=== PATIENT | female | born 1975 | race Caucasian/White ===

== ENCOUNTER 2018-02-27 14:04 | Inpatient (IN) | payer BC ==
[2018-02-27 14:11] VITALS: BMI 29.2
[2018-02-27] MEDS ORDERED: Sodium Chloride 0.9% 1,000 ML IV STA ×2 (14:50→16:28)
[2018-02-27 15:29] LABS: BASO # 0.1 K/uL (0.0-0.2); BASO % 0.6 % (0.0-2.0); HEMOGLOBIN 11.9 g/dL (12.0-16.0); LYMPH # 1.1 K/uL (1.0-4.3); LYMPH % 7.4 % (20.0-40.0); MEAN CELL VOLUME 90.3 fl (81.0-99.0); MEAN CORPUSCULAR HEMOGLOBIN 30.1 pg (27.0-31.0); MEAN CORPUSCULAR HGB CONC 33.4 g/dL (33.0-37.0); MEAN PLATELET VOLUME 7.7 fl (7.2-11.7); MONO # 1.2 K/uL (0.0-0.8); MONO % 8.4 % (0.0-10.0); NEUT # 12.2 K/uL (1.8-7.0); NEUT % 83.6 % (50.0-75.0); PLATELET COUNT 280 K/uL (130-400); RBC 3.97 Mil/uL (3.80-5.20); RED CELL DISTRIBUTION WIDTH 12.3 % (11.5-14.5); WHITE BLOOD COUNT 14.6 K/uL (4.8-10.8)
--- NOTE | 2018-02-27 15:33 | ED PDOC ---
HPI: General Adult Time Seen by Provider: 02/27/18 14:23 Chief Complaint (Nursing): Fever Chief Complaint (Provider): abdominal pain and fever History Per: Patient History/Exam Limitations: no limitations Onset/Duration Of Symptoms: Days (2x) Current Symptoms Are (Timing): Still Present Additional Complaint(s): 42 year old female presents to the ED for an evaluation of abdominal pain and fever onset for 2 days. Also report of body ache and right lower quadrant pain, burning urination and right lower back pain. She went to [facility] yesterday where she was diagnosed with UTI and provided antibiotics. Denies diarrhea or vomiting. PMD: Dr. Avila Past Medical History Reviewed: Historical Data, Nursing Documentation, Vital Signs Vital Signs: Last Vital Signs Temp 98.2 F 03/01/18 12:30 Pulse 70 03/01/18 12:30 Resp 18 03/01/18 12:30 BP 127/78 03/01/18 12:30 Pulse Ox 95 03/01/18 12:30 - Medical History PMH: No Chronic Diseases - Family History Family History: States: Unknown Family Hx - Social History Current smoker - smoking cessation education provided: No Alcohol: None Drugs: Denies - Immunization History Hx Tetanus Toxoid Vaccination: No Hx Influenza Vaccination: No Hx Pneumococcal Vaccination: No - Home Medications Home Medications: Ambulatory Orders Medication Instructions Recorded Phenazopyridine [Pyridium] 200 mg PO TID PRN 02/27/18 Sulfamethoxazole/Trimethoprim 1 tab PO BID 02/27/18 [Bactrim DS Tab] - Allergies Allergies/Adverse Reactions: Allergies Allergy/AdvReac Type Severity Reaction Status Date / Time shrimp Allergy ITCHING Verified 02/27/18 17:34 Review of Systems ROS Statement: Except As Marked, All Systems Reviewed And Found Negative Constitutional: Positive for: Fever, Other (body ache) Gastrointestinal: Positive for: Abdominal Pain (RLQ). Negative for: Vomiting, Diarrhea Genitourinary Female: Positive for: Dysuria Musculoskeletal: Positive for: Back Pain (right lower side) Psych: Negative for: Suicidal ideation (homicidal ideation) Physical Exam - Reviewed Nursing Documentation Reviewed: Yes Vital Signs Reviewed: Yes - Physical Exam Appears: Positive for: Non-toxic, Uncomfortable Head Exam: Positive for: ATRAUMATIC, NORMAL INSPECTION, NORMOCEPHALIC Skin: Positive for: Normal Color, Warm, Dry Eye Exam: Positive for: Normal appearance, EOMI, PERRL ENT: Positive for: Normal ENT Inspection Neck: Positive for: Normal, Painless ROM, Supple. Negative for: Decreased ROM Cardiovascular/Chest: Positive for: Regular Rate, Rhythm, Tachycardia Respiratory: Positive for: Normal Breath Sounds. Negative for: Decreased Breath Sounds, Wheezing, Respiratory Distress Gastrointestinal/Abdominal: Positive for: Tenderness (right lower quadrant) Back: Positive for: R CVA Tenderness Extremity: Positive for: Normal ROM. Negative for: Tenderness, Pedal Edema, Deformity Neurologic/Psych: Positive for: Alert, Oriented (x3). Negative for: Motor/ Sensory Deficits - Laboratory Results Result Diagrams: 03/01/18 05:30 03/01/18 05:30 - ECG O2 Sat by Pulse Oximetry: 98 (RA) Pulse Ox Interpretation: Normal Medical Decision Making Medical Decision Making: Time: 1449 Initial Impression: abdominal pain and fever Differential Diagnosis includes but is not limited to: acute pyelonephritis, kidney stone r/o appendicitis, sepsis Initial Plan: --Venous Blood Gas Shock --EKG --CMP --CBC w/ Differential --Sodium Chloride 0.9% 1000ml IV 1000mls/hr --Toradol 15mg --Tylenol 650mg --Blood culture --Reevaluation Time: 1626 Patient has severe sepsis and sources of UTI. Discussed the case with Dr. David who will admit the patient. Scribe Attestation: Documented by Bettie Castillo, acting as a scribe for Perla Marvin MD Provider Scribe Attestation: All medical record entries made by the Scribe were at my direction and personally dictated by me. I have reviewed the chart and agree that the record accurately reflects my personal performance of the history, physical exam, medical decision making, and the department course for this patient. I have also personally directed, reviewed, and agree with the discharge instructions and disposition. Disposition - Clinical Impression Clinical Impression: Fever, UTI (urinary tract infection), Pyelonephritis, Sepsis - Patient ED Disposition Is Patient to be Admitted: Yes Discussed With : Orlin David Counseled Patient/Family Regarding: Studies Performed, Diagnosis - Disposition Disposition Time: 16:00 Condition: FAIR - Pt Status Changed To: Hospital Disposition Of: Inpatient - Admit Certification Admit to Inpatient:: After my assessment, the patient will require hospitalization for at least two midnights. This is because of the severity of symptoms shown, intensity of services needed, and/or the medical risk in this patient being treated as an outpatient. - POA Present On Arrival: None
[2018-02-27 15:35] LABS: VENOUS BLOOD GAS BASE EXCESS 2.3 mmol/L (0.0-2.0); VENOUS BLOOD GAS PCO2 31 mmHg (40-60); VENOUS BLOOD GAS PO2 33 mm/Hg (30-55); VENOUS BLOOD PH 7.51 (7.32-7.43)
[2018-02-27 15:37] LABS: SQUAMOUS EPITHIAL 1 /hpf (0-5); URINE BACTERIA MOD (<OCC); URINE BILIRUBIN NEGATIVE (NEGATIVE); URINE BLOOD MODERATE (NEGATIVE); URINE CLARITY SLIGHTY-CLOUDY (Clear); URINE COLOR AMBER (YELLOW); URINE GLUCOSE (UA) NEG (Normal); URINE LEUKOCYTE ESTERASE SMALL Leu/uL (Negative); URINE PROTEIN 100 mg/dL (NEGATIVE)
[2018-02-27 16:22] LABS: ALB/GLOB RATIO 1.1 (1.0-2.1); ALBUMIN 4.1 g/dL (3.5-5.0); ALT/SGPT 53 U/L (9-52); AST/SGOT 93 U/L (14-36); BLOOD UREA NITROGEN 12 mg/dl (7-17); CALCIUM 8.8 mg/dL (8.4-10.2); GFR AFRICAN-AMERICAN > 60; GFR NON-AFRICAN AMERICAN > 60
[2018-02-27] MEDS ORDERED: Morphine 4 MG/ML VIAL IVP ONE (16:24)
[2018-02-27] MEDS ORDERED: Morphine 4 MG/ML VIAL ONE (16:31)
[2018-02-27] MEDS ORDERED: cefTRIAXone (Rocephin) 1 gm Inj ONE (16:31)
[2018-02-27] MEDS ORDERED: Iohexol 300 100 ML IJ ONE (17:03)
[2018-02-27] MEDS ORDERED: Sodium Chloride 0.9% 50 ML IV ONE (17:03)
--- NOTE | 2018-02-27 17:38 | CP.PCM.HP ---
History of Present Illness - History of Present Illness History of Present Illness: 42 yo female with no significant PMH came in because of suprapubic pain and dysuria since yesterday accompanied with fever and chills. She was seen at [facility] last night and was diagnosed with UTI. She was sent home with PO antibiotics but pain and dysuria did not improve and was later on accompanied with fever and chills. Denied SOB or chest pain. Present on Admission - Present on Admission Any Indicators Present on Admission: No History of DVT/PE: No History of Uncontrolled Diabetes: No Urinary Catheter: No Decubitus Ulcer Present: No Review of Systems - Review of Systems All systems: reviewed and no additional remarkable complaints except (aside from those mentioned above, 12 point system review were negative by me) Past Patient History - Infectious Disease Hx of Infectious Diseases: None - Tetanus Immunizations Tetanus Immunization: Unknown - Past Medical History & Family History Past Medical History?: No - Past Social History Smoking Status: Never Smoked Chewing Tobacco Use: No Cigar Use: No Alcohol: None Drugs: Denies - GENITOURINARY/GYNECOLOGICAL Hx Urinary Tract Infection: Yes - PSYCHIATRIC Hx Substance Use: No - SURGICAL HISTORY Hx Surgeries: Yes Hx Breast Biopsy: Yes (L Breast) - ANESTHESIA Hx Anesthesia: Yes Hx Anesthesia Reactions: No Meds Allergies/Adverse Reactions: Allergies Allergy/AdvReac Type Severity Reaction Status Date / Time shrimp Allergy ITCHING Verified 02/27/18 17:34 Physical Exam - Constitutional Appears: No Acute Distress - Head Exam Head Exam: ATRAUMATIC - Eye Exam Eye Exam: Scleral icterus - ENT Exam ENT Exam: Mucous Membranes Moist - Neck Exam Neck exam: Negative for: Meningismus - Respiratory Exam Respiratory Exam: absent: Rales, Rhonchi, Wheezes, Respiratory Distress - Cardiovascular Exam Cardiovascular Exam: REGULAR RHYTHM - GI/Abdominal Exam GI & Abdominal Exam: Soft, Tenderness (tenderness over suprapubic area) - Rectal Exam Rectal Exam: Deferred - Extremities Exam Extremities exam: Negative for: calf tenderness, pedal edema - Back Exam Back exam: NORMAL INSPECTION - Neurological Exam Neurological exam: Alert, Oriented x3 - Psychiatric Exam Psychiatric exam: Normal Affect - Skin Skin Exam: Dry, Intact Results - Vital Signs Recent Vital Signs: Last Vital Signs Temp 99.8 F H 02/27/18 17:10 Pulse 92 H 02/27/18 17:10 Resp 16 02/27/18 17:10 BP 103/62 02/27/18 17:10 Pulse Ox 96 02/27/18 17:10 - Labs Result Diagrams: 02/27/18 14:59 02/27/18 15:40 Labs: Laboratory Results - last 24 hr 02/27/18 02/27/18 02/27/18 14:59 15:10 15:30 WBC 14.6 H RBC 3.97 Hgb 11.9 L Hct 35.8 MCV 90.3 MCH 30.1 MCHC 33.4 RDW 12.3 Plt Count 280 MPV 7.7 Neut % (Auto) 83.6 H Lymph % (Auto) 7.4 L [place] % (Auto) 8.4 Eos % (Auto) 0.0 Baso % (Auto) 0.6 Neut # (Auto) 12.2 H Lymph # (Auto) 1.1 Bradford # (Auto) 1.2 H Eos # (Auto) 0.0 Baso # (Auto) 0.1 pO2 33 VBG pH 7.51 H VBG pCO2 31 L VBG HCO3 26.0 VBG Total CO2 25.7 VBG O2 Sat (Calc) 55.6 VBG Base Excess 2.3 H Sodium 183.0 H* Chloride 119.0 H Glucose 129 H Lactate 2.5 H FiO2 21.0 Crit Value Called To Dr stephy shepard Crit Value Called By 6022 Crit Value Read Back Y Blood Gas Notified Time 1535 Potassium Carbon Dioxide Anion Gap BUN Creatinine Est GFR ( Amer) Est GFR (Non-Af Amer) Random Glucose Calcium Total Bilirubin AST ALT Alkaline Phosphatase Total Protein Albumin Globulin Albumin/Globulin Ratio Urine Color Sheron Urine Clarity Slighty-cloudy Urine pH 7.0 Ur Specific [place] 1.016 Urine Protein 100 Urine Glucose (UA) Neg Urine Ketones Negative Urine Blood Moderate Urine Nitrate Positive H Urine Bilirubin Negative Urine Urobilinogen 4.0 H Ur Leukocyte Esterase Small Urine RBC (Auto) 12 H Urine Microscopic WBC 205 H Ur Squamous Epith Cells 1 Urine Bacteria Mod H 02/27/18 15:40 WBC RBC Hgb Hct MCV MCH MCHC RDW Plt Count MPV Neut % (Auto) Lymph % (Auto) [place] % (Auto) Eos % (Auto) Baso % (Auto) Neut # (Auto) Lymph # (Auto) Bradford # (Auto) Eos # (Auto) Baso # (Auto) pO2 VBG pH VBG pCO2 VBG HCO3 VBG Total CO2 VBG O2 Sat (Calc) VBG Base Excess Sodium 138 Chloride 101 Glucose Lactate FiO2 Crit Value Called To Crit Value Called By Crit Value Read Back Blood Gas Notified Time Potassium 3.9 Carbon Dioxide 23 Anion Gap 18 BUN 12 Creatinine 1.0 Est GFR ( Amer) > 60 Est GFR (Non-Af Amer) > 60 Random Glucose 127 H Calcium 8.8 Total Bilirubin 0.8 AST 93 H ALT 53 H Alkaline Phosphatase 101 Total Protein 7.8 Albumin 4.1 Globulin 3.6 Albumin/Globulin Ratio 1.1 Urine Color Urine Clarity Urine pH Ur Specific [place] Urine Protein Urine Glucose (UA) Urine Ketones Urine Blood Urine Nitrate Urine Bilirubin Urine Urobilinogen Ur Leukocyte Esterase Urine RBC (Auto) Urine Microscopic WBC Ur Squamous Epith Cells Urine Bacteria Assessment & Plan - Assessment and Plan (Free Text) Assessment: 42 yo female with no significant PMH came in because of suprapubic pain and dysuria since yesterday accompanied with fever and chills. She was seen at [facility] last night and was diagnosed with UTI. She was sent home with PO antibiotics but pain and dysuria did not improve and was later on accompanied with fever and chills. Denied SOB or chest pain. 1. Sepsis blood and urine culture Rocephin 1gm IV daily repeat serum Lactate ID consult with Dr Fox 2. UTI follow up CT of abdomen IV hydration with NSS 150cc/hr
--- NOTE | 2018-02-27 17:56 | CT ---
Date of service: 02/27/2018 PROCEDURE: CT Abdomen and Pelvis with contrast HISTORY: right LQ pain, right flank pain, UTI COMPARISON: None. TECHNIQUE: Contrast dose: 90 cc Omnipaque 300. Radiation dose: Total exam DLP = 485.91 mGy-cm. This CT exam was performed using one or more of the following dose reduction techniques: Automated exposure control, adjustment of the mA and/or kV according to patient size, and/or use of iterative reconstruction technique. FINDINGS: LOWER THORAX: Dependent atelectasis at the lung bases without focal -discrete infiltrate. LIVER: Unremarkable. No gross lesion or ductal dilatation. GALLBLADDER AND BILE DUCTS: Unremarkable. PANCREAS: Unremarkable. No gross lesion or ductal dilatation. SPLEEN: Unremarkable. ADRENALS: Unremarkable. No mass. KIDNEYS AND URETERS: Edematous right kidney with abnormal contrast enhancement and perinephric stranding. Abnormal enhancement of the right ureter noted. The findings are consistent with pyelonephritis/right ureteritis. VASCULATURE: Unremarkable. No aortic aneurysm. BOWEL: Unremarkable. No obstruction. No gross mural thickening. APPENDIX: Normal appendix. PERITONEUM: Unremarkable. No free fluid. No free air. LYMPH NODES: Unremarkable. No enlarged lymph nodes. BLADDER: Mild bladder wall thickening more likely to be due to underfilling than cystitis. REPRODUCTIVE: Unremarkable. BONES: No acute fracture. OTHER FINDINGS: None. IMPRESSION: Findings in the right kidney in ureter consistent with pyelonephritis/ureteritis. Additional benign and/or incidental findings described above.
[2018-02-27 18:05] LABS: VENOUS BLOOD GAS BASE EXCESS -1.3 mmol/L (0.0-2.0); VENOUS BLOOD GAS PCO2 40 mmHg (40-60); VENOUS BLOOD GAS PO2 37 mm/Hg (30-55); VENOUS BLOOD PH 7.38 (7.32-7.43)
[2018-02-27 18:52] LABS: BANDS 3 % (0-2); LYMPHOCYTE 11 % (20-50); MONOCYTE 5 % (0-10); NEUTROPHIL 81 % (42-75); PLATELET ESTIMATE NORMAL (NORMAL); TOTAL CELLS COUNTED 100
[2018-02-27 18:53] LABS: ANISOCYTOSIS SLIGHT; HYPERSEGMENTATION PRESENT
[2018-02-27] MEDS: Sodium Chloride 0.9% 1,000 ML IV SCH (21:08)
[2018-02-28] MEDS: Sodium Chloride 0.9% 1,000 ML IV SCH ×2 (03:22→11:00)
[2018-02-28 06:01] LABS: BLOOD UREA NITROGEN 8 mg/dl (7-17); CALCIUM 7.5 mg/dL (8.4-10.2); GFR AFRICAN-AMERICAN > 60; GFR NON-AFRICAN AMERICAN > 60
[2018-02-28 06:05] LABS: BASO % 0.2 % (0.0-2.0); HEMOGLOBIN 10.4 g/dL (12.0-16.0); LYMPH # 0.8 K/uL (1.0-4.3); LYMPH % 5.4 % (20.0-40.0); MEAN CELL VOLUME 89.5 fl (81.0-99.0); MEAN CORPUSCULAR HEMOGLOBIN 30.2 pg (27.0-31.0); MEAN CORPUSCULAR HGB CONC 33.7 g/dL (33.0-37.0); MEAN PLATELET VOLUME 7.6 fl (7.2-11.7); MONO # 1.2 K/uL (0.0-0.8); MONO % 7.6 % (0.0-10.0); NEUT # 13.5 K/uL (1.8-7.0); NEUT % 86.8 % (50.0-75.0); NRBC % 0.1 % (0.0-0.0); RBC 3.44 Mil/uL (3.80-5.20); RED CELL DISTRIBUTION WIDTH 12.8 % (11.5-14.5); WHITE BLOOD COUNT 15.6 K/uL (4.8-10.8)
--- NOTE | 2018-02-28 07:22 | CARD ---
APPROVED REPORT Date of service: 02/27/2018 <Conclusion> Normal sinus rhythm Nonspecific ST and T wave abnormality Abnormal ECG
[2018-02-28] MEDS: Pantoprazole 40 mg EC Tab PO SCH (08:16)
--- NOTE | 2018-02-28 09:23 | CP.PCM.CON ---
History of Present Illness - History of Present Illness History of Present Illness: Infectious Disease Consultation_ Asked to see this patient at the request of for UTI/sepsis HPI- Patient is a 42 year old female with no PMH who was admitted with c/o right lower abd/flank pain along with dysurea abd fever. Pt. state she originally went to [facility] ER and was diagnosed with UTI and was d/c home on oral abx but her symptoms did not improve and hence she came to ED here for further evaluation and treatment. She states she tends to hold her urine for long hours because of her job and she thinks that is why she got this UTI. She denies h/o UTI or any renal stones or kidney problems in past. She states she feels better today compared to yesterday. denies any chills , denies any nausea, preston any diarrhea. her abd pain is also less only has minimal flank pain. Review of Systems - Review of Systems Review of Systems: ROS- + fever , + dysurea and lower abd and right flank pain, denies any cough or sob , denies any chest pain, denies any nausea, denies any diarrhea Past Patient History - Infectious Disease Hx of Infectious Diseases: None - Tetanus Immunizations Tetanus Immunization: Unknown - Past Medical History & Family History Past Medical History?: Yes - Past Social History Smoking Status: Never Smoked - CARDIAC Hx Cardiac Disorders: No - PULMONARY Hx Respiratory Disorders: No - NEUROLOGICAL Hx Neurological Disorder: No - HEENT Hx HEENT Problems: No - RENAL Hx Chronic Kidney Disease: No - ENDOCRINE/METABOLIC Hx Endocrine Disorders: No - HEMATOLOGICAL/ONCOLOGICAL Hx Blood Disorders: No - INTEGUMENTARY Hx Dermatological Problems: No - MUSCULOSKELETAL/RHEUMATOLOGICAL Hx Musculoskeletal Disorders: No Hx Falls: No - GASTROINTESTINAL Hx Gastrointestinal Disorders: No - GENITOURINARY/GYNECOLOGICAL Hx Genitourinary Disorders: Yes Hx Urinary Tract Infection: Yes - PSYCHIATRIC Hx Psychophysiologic Disorder: No Hx Substance Use: No - SURGICAL HISTORY Hx Surgeries: Yes Hx Breast Biopsy: Yes (L Breast) - ANESTHESIA Hx Anesthesia: Yes Hx Anesthesia Reactions: No Hx Malignant Hyperthermia: No Meds Allergies/Adverse Reactions: Allergies Allergy/AdvReac Type Severity Reaction Status Date / Time shrimp Allergy ITCHING Verified 02/27/18 17:34 - Medications Medications: Current Medications Acetaminophen (Tylenol 325mg Tab) 650 mg PO Q6 PRN PRN Reason: Pain, Mild (1-3) Last Admin: 02/27/18 20:09 Dose: 650 mg Acetaminophen (Tylenol 325mg Tab) 650 mg PO Q6 PRN PRN Reason: Fever >100.4 F Last Admin: 02/28/18 08:15 Dose: 650 mg Sodium Chloride (Sodium Chloride 0.9%) 1,000 mls @ 150 mls/hr IV .Q6H40M [facility] Last Admin: 02/28/18 03:22 Dose: 150 mls/hr Ceftriaxone Sodium 1 gm/ (Sodium Chloride) 100 mls @ 100 mls/hr IVPB DAILY LOUIE PRN Reason: Protocol Last Admin: 02/28/18 08:18 Dose: 100 mls/hr Pantoprazole Sodium (Protonix Ec Tab) 40 mg PO DAILY [facility] Last Admin: 02/28/18 08:16 Dose: 40 mg Physical Exam - Constitutional Appears: No Acute Distress - Head Exam Head Exam: ATRAUMATIC - Eye Exam Eye Exam: EOMI, PERRL - ENT Exam ENT Exam: Normal Oropharynx - Neck Exam Neck exam: Positive for: Full Rom - Respiratory Exam Respiratory Exam: Clear to Auscultation Bilateral, NORMAL BREATHING PATTERN - Cardiovascular Exam Cardiovascular Exam: RRR, +S1, +S2 - GI/Abdominal Exam GI & Abdominal Exam: Normal Bowel Sounds, Soft Additional comments: + tenderness in right lower abd and right flank area + right CVA tenderness No guarding, No rebound - Extremities Exam Extremities exam: Positive for: normal inspection - Neurological Exam Neurological exam: Alert, Oriented x3 Results - Vital Signs Recent Vital Signs: Last Vital Signs Temp 102 F H 02/28/18 08:15 Pulse 100 H 02/28/18 08:21 Resp 18 02/28/18 08:04 BP 111/69 02/28/18 08:04 Pulse Ox 95 02/28/18 08:04 - Labs Result Diagrams: 02/28/18 05:10 02/28/18 05:10 Labs: Laboratory Results - last 24 hr 02/27/18 02/27/18 02/27/18 14:59 15:10 15:30 WBC 14.6 H RBC 3.97 Hgb 11.9 L Hct 35.8 MCV 90.3 MCH 30.1 MCHC 33.4 RDW 12.3 Plt Count 280 MPV 7.7 Neut % (Auto) 83.6 H Lymph % (Auto) 7.4 L [place] % (Auto) 8.4 Eos % (Auto) 0.0 Baso % (Auto) 0.6 Neut # (Auto) 12.2 H Lymph # (Auto) 1.1 [place] # (Auto) 1.2 H Eos # (Auto) 0.0 Baso # (Auto) 0.1 Neutrophils % (Manual) 81 H Band Neutrophils % 3 H Lymphocytes % (Manual) 11 L Monocytes % (Manual) 5 Hypersegmented Polys Present Platelet Estimate Normal Anisocytosis (manual) Slight pO2 33 VBG pH 7.51 H VBG pCO2 31 L VBG HCO3 26.0 VBG Total CO2 25.7 VBG O2 Sat (Calc) 55.6 VBG Base Excess 2.3 H VBG Potassium Sodium 183.0 H* Chloride 119.0 H Glucose 129 H Lactate 2.5 H FiO2 21.0 Crit Value Called To Dr [email or web address] shepard Crit Value Called By 6075 Crit Value Read Back Y Blood Gas Notified Time 1535 Potassium Carbon Dioxide Anion Gap BUN Creatinine Est GFR ( Amer) Est GFR (Non-Af Amer) Random Glucose Calcium Total Bilirubin AST ALT Alkaline Phosphatase Total Protein Albumin Globulin Albumin/Globulin Ratio Venous Blood Potassium Urine Color Sheron Urine Clarity Slighty-cloudy Urine pH 7.0 Ur Specific [place] 1.016 Urine Protein 100 Urine Glucose (UA) Neg Urine Ketones Negative Urine Blood Moderate Urine Nitrate Positive H Urine Bilirubin Negative Urine Urobilinogen 4.0 H Ur Leukocyte Esterase Small Urine RBC (Auto) 12 H Urine Microscopic WBC 205 H Ur Squamous Epith Cells 1 Urine Bacteria Mod H 02/27/18 02/27/18 02/28/18 15:40 18:02 05:10 WBC 15.6 H RBC 3.44 L Hgb 10.4 L Hct 30.8 L MCV 89.5 MCH 30.2 MCHC 33.7 RDW 12.8 Plt Count 233 MPV 7.6 Neut % (Auto) 86.8 H Lymph % (Auto) 5.4 L [place] % (Auto) 7.6 Eos % (Auto) 0.0 Baso % (Auto) 0.2 Neut # (Auto) 13.5 H Lymph # (Auto) 0.8 L [place] # (Auto) 1.2 H Eos # (Auto) 0.0 Baso # (Auto) 0.0 Neutrophils % (Manual) Band Neutrophils % Lymphocytes % (Manual) Monocytes % (Manual) Hypersegmented Polys Platelet Estimate Anisocytosis (manual) pO2 37 VBG pH 7.38 VBG pCO2 40 VBG HCO3 23.2 VBG Total CO2 24.9 VBG O2 Sat (Calc) 67.4 H VBG Base Excess -1.3 L VBG Potassium 3.6 Sodium 138 137.0 Chloride 101 106.0 Glucose 120 H Lactate 0.8 FiO2 21.0 Crit Value Called To Crit Value Called By Crit Value Read Back Blood Gas Notified Time Potassium 3.9 Carbon Dioxide 23 Anion Gap 18 BUN 12 Creatinine 1.0 Est GFR ( Amer) > 60 Est GFR (Non-Af Amer) > 60 Random Glucose 127 H Calcium 8.8 Total Bilirubin 0.8 AST 93 H ALT 53 H Alkaline Phosphatase 101 Total Protein 7.8 Albumin 4.1 Globulin 3.6 Albumin/Globulin Ratio 1.1 Venous Blood Potassium 3.6 Urine Color Urine Clarity Urine pH Ur Specific [place] Urine Protein Urine Glucose (UA) Urine Ketones Urine Blood Urine Nitrate Urine Bilirubin Urine Urobilinogen Ur Leukocyte Esterase Urine RBC (Auto) Urine Microscopic WBC Ur Squamous Epith Cells Urine Bacteria 02/28/18 05:10 WBC RBC Hgb Hct MCV MCH MCHC RDW Plt Count MPV Neut % (Auto) Lymph % (Auto) [place] % (Auto) Eos % (Auto) Baso % (Auto) Neut # (Auto) Lymph # (Auto) [place] # (Auto) Eos # (Auto) Baso # (Auto) Neutrophils % (Manual) Band Neutrophils % Lymphocytes % (Manual) Monocytes % (Manual) Hypersegmented Polys Platelet Estimate Anisocytosis (manual) pO2 VBG pH VBG pCO2 VBG HCO3 VBG Total CO2 VBG O2 Sat (Calc) VBG Base Excess VBG Potassium Sodium 139 Chloride 107 Glucose Lactate FiO2 Crit Value Called To Crit Value Called By Crit Value Read Back Blood Gas Notified Time Potassium 4.1 Carbon Dioxide 22 Anion Gap 14 BUN 8 Creatinine 0.8 Est GFR ( Amer) > 60 Est GFR (Non-Af Amer) > 60 Random Glucose 120 H Calcium 7.5 L Total Bilirubin AST ALT Alkaline Phosphatase Total Protein Albumin Globulin Albumin/Globulin Ratio Venous Blood Potassium Urine Color Urine Clarity Urine pH Ur Specific [place] Urine Protein Urine Glucose (UA) Urine Ketones Urine Blood Urine Nitrate Urine Bilirubin Urine Urobilinogen Ur Leukocyte Esterase Urine RBC (Auto) Urine Microscopic WBC Ur Squamous Epith Cells Urine Bacteria Laboratory Results - last 72 hr 02/27/18 02/27/18 02/27/18 14:59 15:10 15:30 WBC 14.6 H RBC 3.97 Hgb 11.9 L Hct 35.8 MCV 90.3 MCH 30.1 MCHC 33.4 RDW 12.3 Plt Count 280 MPV 7.7 Neut % (Auto) 83.6 H Lymph % (Auto) 7.4 L [place] % (Auto) 8.4 Eos % (Auto) 0.0 Baso % (Auto) 0.6 Neut # (Auto) 12.2 H Lymph # (Auto) 1.1 [place] # (Auto) 1.2 H Eos # (Auto) 0.0 Baso # (Auto) 0.1 Neutrophils % (Manual) 81 H Band Neutrophils % 3 H Lymphocytes % (Manual) 11 L Monocytes % (Manual) 5 Hypersegmented Polys Present Platelet Estimate Normal Anisocytosis (manual) Slight pO2 33 VBG pH 7.51 H VBG pCO2 31 L VBG HCO3 26.0 VBG Total CO2 25.7 VBG O2 Sat (Calc) 55.6 VBG Base Excess 2.3 H VBG Potassium Sodium 183.0 H* Chloride 119.0 H Glucose 129 H Lactate 2.5 H FiO2 21.0 Crit Value Called To Dr stephy shepard Crit Value Called By 6075 Crit Value Read Back Y Blood Gas Notified Time 1535 Potassium Carbon Dioxide Anion Gap BUN Creatinine Est GFR ( Amer) Est GFR (Non-Af Amer) Random Glucose Calcium Total Bilirubin AST ALT Alkaline Phosphatase Total Protein Albumin Globulin Albumin/Globulin Ratio Venous Blood Potassium Urine Color Sheron Urine Clarity Slighty-cloudy Urine pH 7.0 Ur Specific [place] 1.016 Urine Protein 100 Urine Glucose (UA) Neg Urine Ketones Negative Urine Blood Moderate Urine Nitrate Positive H Urine Bilirubin Negative Urine Urobilinogen 4.0 H Ur Leukocyte Esterase Small Urine RBC (Auto) 12 H Urine Microscopic WBC 205 H Ur Squamous Epith Cells 1 Urine Bacteria Mod H 02/27/18 02/27/18 02/28/18 15:40 18:02 05:10 WBC 15.6 H RBC 3.44 L Hgb 10.4 L Hct 30.8 L MCV 89.5 MCH 30.2 MCHC 33.7 RDW 12.8 Plt Count 233 MPV 7.6 Neut % (Auto) 86.8 H Lymph % (Auto) 5.4 L [place] % (Auto) 7.6 Eos % (Auto) 0.0 Baso % (Auto) 0.2 Neut # (Auto) 13.5 H Lymph # (Auto) 0.8 L [place] # (Auto) 1.2 H Eos # (Auto) 0.0 Baso # (Auto) 0.0 Neutrophils % (Manual) Band Neutrophils % Lymphocytes % (Manual) Monocytes % (Manual) Hypersegmented Polys Platelet Estimate Anisocytosis (manual) pO2 37 VBG pH 7.38 VBG pCO2 40 VBG HCO3 23.2 VBG Total CO2 24.9 VBG O2 Sat (Calc) 67.4 H VBG Base Excess -1.3 L VBG Potassium 3.6 Sodium 138 137.0 Chloride 101 106.0 Glucose 120 H Lactate 0.8 FiO2 21.0 Crit Value Called To Crit Value Called By Crit Value Read Back Blood Gas Notified Time Potassium 3.9 Carbon Dioxide 23 Anion Gap 18 BUN 12 Creatinine 1.0 Est GFR ( Amer) > 60 Est GFR (Non-Af Amer) > 60 Random Glucose 127 H Calcium 8.8 Total Bilirubin 0.8 AST 93 H ALT 53 H Alkaline Phosphatase 101 Total Protein 7.8 Albumin 4.1 Globulin 3.6 Albumin/Globulin Ratio 1.1 Venous Blood Potassium 3.6 Urine Color Urine Clarity Urine pH Ur Specific [place] Urine Protein Urine Glucose (UA) Urine Ketones Urine Blood Urine Nitrate Urine Bilirubin Urine Urobilinogen Ur Leukocyte Esterase Urine RBC (Auto) Urine Microscopic WBC Ur Squamous Epith Cells Urine Bacteria 02/28/18 05:10 WBC RBC Hgb Hct MCV MCH MCHC RDW Plt Count MPV Neut % (Auto) Lymph % (Auto) [place] % (Auto) Eos % (Auto) Baso % (Auto) Neut # (Auto) Lymph # (Auto) [place] # (Auto) Eos # (Auto) Baso # (Auto) Neutrophils % (Manual) Band Neutrophils % Lymphocytes % (Manual) Monocytes % (Manual) Hypersegmented Polys Platelet Estimate Anisocytosis (manual) pO2 VBG pH VBG pCO2 VBG HCO3 VBG Total CO2 VBG O2 Sat (Calc) VBG Base Excess VBG Potassium Sodium 139 Chloride 107 Glucose Lactate FiO2 Crit Value Called To Crit Value Called By Crit Value Read Back Blood Gas Notified Time Potassium 4.1 Carbon Dioxide 22 Anion Gap 14 BUN 8 Creatinine 0.8 Est GFR ( Amer) > 60 Est GFR (Non-Af Amer) > 60 Random Glucose 120 H Calcium 7.5 L Total Bilirubin AST ALT Alkaline Phosphatase Total Protein Albumin Globulin Albumin/Globulin Ratio Venous Blood Potassium Urine Color Urine Clarity Urine pH Ur Specific [place] Urine Protein Urine Glucose (UA) Urine Ketones Urine Blood Urine Nitrate Urine Bilirubin Urine Urobilinogen Ur Leukocyte Esterase Urine RBC (Auto) Urine Microscopic WBC Ur Squamous Epith Cells Urine Bacteria Accession No. : [id number] Patient Name / ID : RENETTA FERRER / [id number] Exam Date : 02/27/2018 17:10:14 ( Approved ) Study Comment : Sex / Age : F / 42Y Creator : Mauricio Sarkar MD Dictator : Mauricio Sarkar MD Route Salesman And Driver : Ict Educator : Mauricio Sarkar MD Approver2 : Report Date : 02/27/2018 17:55:25 My Comment : Date of service: 02/27/2018 PROCEDURE: CT Abdomen and Pelvis with contrast HISTORY: right LQ pain, right flank pain, UTI COMPARISON: None. TECHNIQUE: Contrast dose: 90 cc Omnipaque 300. Radiation dose: Total exam DLP = 485.91 mGy-cm. This CT exam was performed using one or more of the following dose reduction techniques: Automated exposure control, adjustment of the mA and/or kV according to patient size, and/or use of iterative reconstruction technique. FINDINGS: LOWER THORAX: Dependent atelectasis at the lung bases without focal -discrete infiltrate. LIVER: Unremarkable. No gross lesion or ductal dilatation. GALLBLADDER AND BILE DUCTS: Unremarkable. PANCREAS: Unremarkable. No gross lesion or ductal dilatation. SPLEEN: Unremarkable. ADRENALS: Unremarkable. No mass. KIDNEYS AND URETERS: Edematous right kidney with abnormal contrast enhancement and perinephric stranding. Abnormal enhancement of the right ureter noted. The findings are consistent with pyelonephritis/right ureteritis. VASCULATURE: Unremarkable. No aortic aneurysm. BOWEL: Unremarkable. No obstruction. No gross mural thickening. APPENDIX: Normal appendix. PERITONEUM: Unremarkable. No free fluid. No free air. LYMPH NODES: Unremarkable. No enlarged lymph nodes. BLADDER: Mild bladder wall thickening more likely to be due to underfilling than cystitis. REPRODUCTIVE: Unremarkable. BONES: No acute fracture. OTHER FINDINGS: None. IMPRESSION: Findings in the right kidney in ureter consistent with pyelonephritis/ ureteritis. Additional benign and/or incidental findings described above. Assessment & Plan (1) UTI (urinary tract infection) Status: Acute (2) Pyelonephritis Status: Acute (3) Leukocytosis Status: Acute - Assessment and Plan (Free Text) Assessment: A/P- 42 year old female with UTI/Right pyelonephritis. febrile leukocytosis + UA ct abd/pelvis- right pyelo as per report PLan- check blood cx x 2. awawit urine cx . advise to d/c ceftriaxone. Place on IV meropenm for broad spectrum coverage pending Cx results. All above d/w patient and she verbalzies full understanding of all above. Thank you for allowing me to take part in the care of this patient.
--- NOTE | 2018-02-28 10:04 | CP.PCM.PN ---
<Amy Hui - Last Filed: 02/28/18 15:22> Subjective - Date & Time of Evaluation Date of Evaluation: 02/28/18 Time of Evaluation: 09:50 - Subjective Subjective: Patient seen and examine with Dr. Brandt Hui Stinnett PGY-1 Patient laying in bed, ill-appearing, febrile with temp of 102F, complaining of dysuria, and urgency. Objective - Vital Signs/Intake and Output Vital Signs (last 24 hours): Temp Pulse Resp BP Pulse Ox 102 F H 100 H 18 111/69 95 02/28/18 08:15 02/28/18 08:21 02/28/18 08:04 02/28/18 08:04 02/28/18 08:04 - Medications Medications: Current Medications Acetaminophen (Tylenol 325mg Tab) 650 mg PO Q6 PRN PRN Reason: Pain, Mild (1-3) Last Admin: 02/27/18 20:09 Dose: 650 mg Acetaminophen (Tylenol 325mg Tab) 650 mg PO Q6 PRN PRN Reason: Fever >100.4 F Last Admin: 02/28/18 08:15 Dose: 650 mg Sodium Chloride (Sodium Chloride 0.9%) 1,000 mls @ 150 mls/hr IV .Q6H40M [facility] Last Admin: 02/28/18 03:22 Dose: 150 mls/hr Ceftriaxone Sodium 1 gm/ (Sodium Chloride) 100 mls @ 100 mls/hr IVPB DAILY LOUIE PRN Reason: Protocol Last Admin: 02/28/18 08:18 Dose: 100 mls/hr Pantoprazole Sodium (Protonix Ec Tab) 40 mg PO DAILY [facility] Last Admin: 02/28/18 08:16 Dose: 40 mg - Labs Labs: 02/28/18 05:10 02/28/18 05:10 - Head Exam Head Exam: ATRAUMATIC - Eye Exam Eye Exam: EOMI - Respiratory Exam Respiratory Exam: Clear to Ausculation Bilateral - Cardiovascular Exam Cardiovascular Exam: REGULAR RHYTHM, +S1, +S2 - GI/Abdominal Exam GI & Abdominal Exam: Soft, Tenderness, Normal Bowel Sounds - Back Exam Back Exam: CVA tenderness (R) - Neurological Exam Neurological Exam: Oriented x3 - Psychiatric Exam Psychiatric exam: Normal Affect - Skin Skin Exam: Warm Assessment and Plan - Assessment and Plan (Free Text) Assessment: 42 y/o F with no PMH presented to ED yesterday with complaints of suprapubic pain, dysuria, fever & chills x 1 day. Patient was seen at [facility] for the same complaints. There she was diagnosed with UTI & sent home with oral antibiotics, but states there was no improvement of her symptoms. 1. Sepsis - Awaiting blood & urine cultures -ID consulted; stopped rocephin and switched to meropenem as per Dr. Fox 2. UTI with Pyelonephritis -CT of abdomen show perinephric stranding consistent with pyelonephritis -IV hydration with NSS 150cc/hr -See management as mentioned above <Licha Carlton - Last Filed: 02/28/18 15:29> Objective - Vital Signs/Intake and Output Vital Signs (last 24 hours): Temp Pulse Resp BP Pulse Ox 103 F H 98 H 18 118/68 98 02/28/18 12:09 02/28/18 12:09 02/28/18 12:09 02/28/18 12:09 02/28/18 12:09 - Medications Medications: Current Medications Acetaminophen (Tylenol 325mg Tab) 650 mg PO Q6 PRN PRN Reason: Pain, Mild (1-3) Last Admin: 02/27/18 20:09 Dose: 650 mg Acetaminophen (Tylenol 325mg Tab) 650 mg PO Q6 PRN PRN Reason: Fever >100.4 F Last Admin: 02/28/18 08:15 Dose: 650 mg Sodium Chloride (Sodium Chloride 0.9%) 1,000 mls @ 150 mls/hr IV .Q6H40M [facility] Last Admin: 02/28/18 03:22 Dose: 150 mls/hr Meropenem 1 gm/ Sodium (Chloride) 100 mls @ 100 mls/hr IVPB Q8 LOUIE PRN Reason: Protocol Pantoprazole Sodium (Protonix Ec Tab) 40 mg PO DAILY [facility] Last Admin: 02/28/18 08:16 Dose: 40 mg - Labs Labs: 02/28/18 05:10 02/28/18 05:10 Attending/Attestation - Attestation I have personally seen and examined this patient.: Yes I have fully participated in the care of the patient.: Yes I have reviewed all pertinent clinical information, including history, physical exam and plan: Yes Notes (Text): Sepsis sec to Acute Pyelonephritis (POA) - persitently febrile, WBC ct went up -ID consulted- changed abx to Meropenem
[2018-02-28] MEDS: Meropenem 1 GM in Sodium Chloride 0.9% 100 ML IVPB SCH (16:42)
[2018-03-01] MEDS: Meropenem 1 GM in Sodium Chloride 0.9% 100 ML IVPB SCH ×3 (00:29→16:47)
[2018-03-01 07:06] LABS: BASO % 0.3 % (0.0-2.0); HEMOGLOBIN 10.1 g/dL (12.0-16.0); LYMPH # 1.2 K/uL (1.0-4.3); MEAN CELL VOLUME 88.7 fl (81.0-99.0); MEAN CORPUSCULAR HEMOGLOBIN 30.3 pg (27.0-31.0); MEAN CORPUSCULAR HGB CONC 34.1 g/dL (33.0-37.0); MEAN PLATELET VOLUME 7.9 fl (7.2-11.7); MONO # 1.3 K/uL (0.0-0.8); MONO % 8.3 % (0.0-10.0); NEUT # 12.6 K/uL (1.8-7.0); NEUT % 83.4 % (50.0-75.0); RBC 3.35 Mil/uL (3.80-5.20); WHITE BLOOD COUNT 15.1 K/uL (4.8-10.8)
[2018-03-01 07:08] LABS: ALBUMIN 3.2 g/dL (3.5-5.0); ALT/SGPT 65 U/L (9-52); AST/SGOT 56 U/L (14-36); BLOOD UREA NITROGEN 7 mg/dl (7-17); CALCIUM 8.1 mg/dL (8.4-10.2); GFR AFRICAN-AMERICAN > 60; GFR NON-AFRICAN AMERICAN > 60
[2018-03-01] MEDS: Sodium Chloride 0.9% 1,000 ML IV SCH ×3 (08:54→16:49)
[2018-03-01] MEDS: Pantoprazole 40 mg EC Tab PO SCH (08:55)
--- NOTE | 2018-03-01 11:17 | CP.PCM.PN ---
Subjective - Date & Time of Evaluation Date of Evaluation: 03/01/18 Time of Evaluation: 11:17 - Subjective Subjective: defervescing no other complaints, feeling mildly improved hd stable [place] [facility] [place] - Vital Signs/Intake and Output Vital Signs (last 24 hours): Temp Pulse Resp BP Pulse Ox 99.6 F 77 18 112/75 95 03/01/18 08:19 03/01/18 08:19 03/01/18 08:19 03/01/18 08:19 03/01/18 08:19 Intake and Output: Vitals Reviewed GEN: WDWN, alert, cooperative HEENT: NCAT, PERRL, EOMI HEART: RRR, +S1S2, NO MRG LUNG: CTAB, NO WRR ABD: soft, NT, ND, No HSM, No masses EXT: normal pedal pulses, normal capillary refill NEURO: awake, alert, no focal deficits SKIN: warm, dry PSYCH: normal mood, normal affect - Medications Medications: Current Medications Acetaminophen (Tylenol 325mg Tab) 650 mg PO Q6 PRN PRN Reason: Pain, Mild (1-3) Last Admin: 02/27/18 20:09 Dose: 650 mg Acetaminophen (Tylenol 325mg Tab) 650 mg PO Q6 PRN PRN Reason: Fever >100.4 F Last Admin: 02/28/18 20:25 Dose: 650 mg Sodium Chloride (Sodium Chloride 0.9%) 1,000 mls @ 150 mls/hr IV .Q6H40M [facility] Last Admin: 03/01/18 08:54 Dose: 150 mls/hr Meropenem 1 gm/ Sodium (Chloride) 100 mls @ 100 mls/hr IVPB Q8 LOUIE PRN Reason: Protocol Last Admin: 03/01/18 08:52 Dose: 100 mls/hr Pantoprazole Sodium (Protonix Ec Tab) 40 mg PO DAILY [facility] Last Admin: 03/01/18 08:55 Dose: 40 mg - Labs Labs: 03/01/18 05:30 03/01/18 05:30 Assessment and Plan - Assessment and Plan (Free Text) Plan: 42 y/o F with no PMH presented to ED yesterday with complaints of suprapubic pain, dysuria, fever & chills x 1 day. Patient was seen at [facility] for the same complaints. There she was diagnosed with UTI & sent home with oral antibiotics, but states there was no improvement of her symptoms. 1. Sepsis 2. UTI with Pyelonephritis - +blood cx for GNR, urine cx + ECOLI. - patient on Merrem per ID, sensitive. duration of treatment per ID, Dr. Fox appreciated - CT of abdomen show perinephric stranding consistent with pyelonephritis - IV hydration with NSS 150cc/hr - HD stable, may transfer to [facility] today
--- NOTE | 2018-03-01 11:42 | CP.PCM.PN ---
Subjective - Date & Time of Evaluation Date of Evaluation: 03/01/18 Time of Evaluation: 11:42 - Subjective Subjective: ID Note- Pt. seen and examined today. states she feels better than yesterday and less flank pain. no fever. has better appetite today. Objective - Vital Signs/Intake and Output Vital Signs (last 24 hours): Temp Pulse Resp BP Pulse Ox 99.6 F 77 18 112/75 95 03/01/18 08:19 03/01/18 08:19 03/01/18 08:19 03/01/18 08:19 03/01/18 08:19 - Medications Medications: Current Medications Acetaminophen (Tylenol 325mg Tab) 650 mg PO Q6 PRN PRN Reason: Pain, Mild (1-3) Last Admin: 02/27/18 20:09 Dose: 650 mg Acetaminophen (Tylenol 325mg Tab) 650 mg PO Q6 PRN PRN Reason: Fever >100.4 F Last Admin: 02/28/18 20:25 Dose: 650 mg Sodium Chloride (Sodium Chloride 0.9%) 1,000 mls @ 150 mls/hr IV .Q6H40M [facility] Last Admin: 03/01/18 08:54 Dose: 150 mls/hr Meropenem 1 gm/ Sodium (Chloride) 100 mls @ 100 mls/hr IVPB Q8 LOUIE PRN Reason: Protocol Last Admin: 03/01/18 08:52 Dose: 100 mls/hr Pantoprazole Sodium (Protonix Ec Tab) 40 mg PO DAILY [facility] Last Admin: 03/01/18 08:55 Dose: 40 mg - Labs Labs: - Additional Findings Additional findings: - Constitutional Appears: No Acute Distress - Head Exam Head Exam: ATRAUMATIC - Eye Exam Eye Exam: EOMI, PERRL - ENT Exam ENT Exam: Normal Oropharynx - Neck Exam Neck exam: Positive for: Full Rom - Respiratory Exam Respiratory Exam: Clear to Auscultation Bilateral, NORMAL BREATHING PATTERN - Cardiovascular Exam Cardiovascular Exam: RRR, +S1, +S2 - GI/Abdominal Exam GI & Abdominal Exam: Normal Bowel Sounds, Soft Additional comments: + tenderness in right lower abd and right flank area + right CVA tenderness No guarding, No rebound - Extremities Exam Extremities exam: Positive for: normal inspection - Neurological Exam Neurological exam: Alert, Oriented x 3 Microbiology 02/27/18 15:10 Urine Urine Culture - Final Escherichia Coli 02/27/18 15:00 Blood Blood Culture - Preliminary NO GROWTH AFTER 24 HOURS 02/27/18 14:40 Blood Blood Culture - Preliminary Gram Negative Sandor 02/27/18 14:40 Blood Gram Stain - Final Assessment and Plan (1) UTI (urinary tract infection) Status: Acute (2) Pyelonephritis Status: Acute (3) Leukocytosis Status: Acute - Assessment and Plan (Free Text) Assessment: A/P- 42 year old female with UTI/Right pyelonephritis. afebrile today. leukocytosis still present. + UA ct abd/pelvis- right pyelo as per report blood cx- e.coli pansensntive Urine cx -prelim GNR PLan- continue with IV meropenm for e.coli bacteremia and UTI. await ID and sen of the GNR urine cx. check 2 more blood cx. check TTE r/o vegetations. All above d/w patient and she verbalizes full understanding of all above.
--- NOTE | 2018-03-01 17:39 | CARD ---
APPROVED REPORT Date of service: 03/01/2018 EXAM: Two-dimensional and M-mode echocardiogram with Doppler and color Doppler. Other Information Quality : GoodRhythm : NSR INDICATION BACTEREMIA 2D DIMENSIONS IVSd0.93 (0.7-1.1cm)LVDd4.40 (3.9-5.9cm) LVOT Diameter1.99 (1.8-2.4cm)PWd0.77 (0.7-1.1cm) IVSs1.04 (0.8-1.2cm)LVDs3.12 (2.5-4.0cm) FS (%) 29.2 %PWs1.13 (0.8-1.2cm) M-Mode DIMENSIONS Left Atrium (MM)4.14 (2.5-4.0cm)IVSd0.90 (0.7-1.1cm) Aortic Root2.83 (2.2-3.7cm)LVDd5.10 (4.0-5.6cm) Aortic Cusp Exc.2.16 (1.5-2.0cm)PWd0.82 (0.7-1.1cm) IVSs1.29 cmFS (%) 33 % LVDs3.40 (2.0-3.8cm)PWs1.11 cm Aortic Valve AoV Peak Udlajpgg732.4cm/sAoV VTI25.3cmAO Peak GR.8mmHg LVOT Peak Nqrdbwrh034.5cm/sLVOT VTI20.78cmAO Mean GR.4mmHg Mitral Valve MV E Twnoblvu26.9cm/sMV DECEL PEEH268sxSB A Sqqcvnic39.9cm/s MV BUF07lcA/A ratio1.7MVA (PHT)4.52cm2 TDI Lateral E' Peak V16.38cm/sMedial E' Peak V11.73cm/sE/Lateral E'4.9 E/Medial E'6.8 Pulmonary Valve PV Peak Bqtdrnpu64.3cm/s LEFT VENTRICLE The left ventricle is normal size. There is normal left ventricular wall thickness. The left ventricular ejection fraction is within the normal range. The Ejection Fraction is 55-60%. No regional wall motion abnormalities noted.. The left ventricular diastolic function is normal. No left ventricle thrombus noted on this study. There is no ventricular septal defect visualized. There is no mass noted in the left ventricle. RIGHT VENTRICLE The right ventricle is normal size. There is normal right ventricular wall thickness. The right ventricular systolic function is normal. ATRIA The left atrium is mildly dilated. The right atrium size is normal. The interatrial septum is intact with no evidence for an atrial septal defect. AORTIC VALVE The aortic valve is normal in structure. No aortic regurgitation is present. There is no aortic valvular stenosis. MITRAL VALVE The mitral valve is normal in structure. There is no mitral valve stenosis. Mitral regurgitation is mild. TRICUSPID VALVE The tricuspid valve is normal in structure. There is no tricuspid valve regurgitation noted. PULMONIC VALVE The pulmonary valve is normal in structure. There is no pulmonic valvular regurgitation. GREAT VESSELS The aortic root is normal in size. The ascending aorta is normal in size. The pulmonary artery is normal. The IVC is normal in size and collapses >50% with inspiration. PERICARDIAL EFFUSION There is no pericardial effusion. <Conclusion> Mild mitral insufficiency Dilated left atrium Normal LV function The Ejection Fraction is 55-60%. No evidence of valvular vegetation
[2018-03-02] MEDS: Sodium Chloride 0.9% 1,000 ML IV SCH ×3 (00:45→19:20)
[2018-03-02] MEDS: Meropenem 1 GM in Sodium Chloride 0.9% 100 ML IVPB SCH ×3 (00:46→16:40)
[2018-03-02 06:32] LABS: HEMOGLOBIN 10.5 g/dL (12.0-16.0); MEAN CELL VOLUME 88.4 fl (81.0-99.0); MEAN CORPUSCULAR HEMOGLOBIN 30.5 pg (27.0-31.0); MEAN CORPUSCULAR HGB CONC 34.5 g/dL (33.0-37.0); RBC 3.46 Mil/uL (3.80-5.20); RED CELL DISTRIBUTION WIDTH 13.2 % (11.5-14.5); WHITE BLOOD COUNT 10.1 K/uL (4.8-10.8)
[2018-03-02 06:43] LABS: ALB/GLOB RATIO 0.9 (1.0-2.1); ALT/SGPT 54 U/L (9-52); AST/SGOT 50 U/L (14-36); BLOOD UREA NITROGEN 6 mg/dl (7-17); CALCIUM 8.1 mg/dL (8.4-10.2); GFR AFRICAN-AMERICAN > 60; GFR NON-AFRICAN AMERICAN > 60
[2018-03-02] MEDS: Pantoprazole 40 mg EC Tab PO SCH (09:02)
--- NOTE | 2018-03-02 09:47 | CP.PCM.PN ---
<Amy Hui - Last Filed: 03/02/18 15:46> Subjective - Date & Time of Evaluation Date of Evaluation: 03/02/18 Time of Evaluation: 10:45 - Subjective Subjective: Patient seen and examined this AM with Dr. Brandt Hui, , PGY-1 Patient awake, laying in bed; Patient states she is feeling better, tolerating Regular PO diet, and voiding without dysuria. Last Temp 99.2 F. Objective - Vital Signs/Intake and Output Vital Signs (last 24 hours): Temp Pulse Resp BP Pulse Ox 98.3 F 81 20 126/73 93 L 03/02/18 08:35 03/02/18 08:35 03/02/18 08:35 03/02/18 08:35 03/02/18 08:35 - Medications Medications: Current Medications Acetaminophen (Tylenol 325mg Tab) 650 mg PO Q6 PRN PRN Reason: Pain, Mild (1-3) Last Admin: 02/27/18 20:09 Dose: 650 mg Acetaminophen (Tylenol 325mg Tab) 650 mg PO Q6 PRN PRN Reason: Fever >100.4 F Last Admin: 02/28/18 20:25 Dose: 650 mg Sodium Chloride (Sodium Chloride 0.9%) 1,000 mls @ 150 mls/hr IV .Q6H40M [facility] Last Admin: 03/02/18 09:01 Dose: 150 mls/hr Meropenem 1 gm/ Sodium (Chloride) 100 mls @ 100 mls/hr IVPB Q8 [facility] PRN Reason: Protocol Last Admin: 03/02/18 09:02 Dose: 100 mls/hr Naproxen (Naprosyn Tab) 375 mg PO Q12 [facility] Last Admin: 03/02/18 09:03 Dose: Not Given Pantoprazole Sodium (Protonix Ec Tab) 40 mg PO DAILY [facility] Last Admin: 03/02/18 09:02 Dose: 40 mg - Labs Labs: 03/02/18 05:30 03/02/18 05:30 - Constitutional Appears: No Acute Distress - Head Exam Head Exam: ATRAUMATIC - Eye Exam Eye Exam: EOMI - Neck Exam Neck Exam: Full ROM - Respiratory Exam Respiratory Exam: Clear to Ausculation Bilateral - Cardiovascular Exam Cardiovascular Exam: REGULAR RHYTHM, +S1, +S2 - GI/Abdominal Exam Additional comments: +BS, soft, nontender, no guarding or rigidity - Extremities Exam Extremities Exam: Full ROM, Normal Inspection - Back Exam Additional comments: NO CVA tenderness Assessment and Plan - Assessment and Plan (Free Text) Assessment: 42 y/o F with no PMH presented to ED complaining of suprapubic pain, dysuria, fever & chills. She was seen at [facility] for similar complaints, and sent home with with oral antibiotics, but symptoms worsened. Patient was found to be febrile (101.5 F)with leuokocytosis (14.6). Abd CT showed perinephric stranding and edematous right kidney, consistent wit pyelonephritis. Patient was given rocephin, which was switched to meropenem because of increased spike in WBC. Blood Culture & Urine Cultures were both + for E.Coli. Echocardiogram was negative for vegetations. 1. Severe Sepsis secondary to UTI with Pyelonephritis + Bacteremia -Lactate was elevated at 2.5 on admission -Will continue IV meropenem because of bacteremia (echo negative for vegetations ) -Will continue to monitor vitals 2. Hypokalemia -Given 40 mEQ of Potassium -Will repeat BMP this afternoon & supplement Potassium as needed <Licha Carlton - Last Filed: 03/02/18 16:29> Objective - Vital Signs/Intake and Output Vital Signs (last 24 hours): Temp Pulse Resp BP Pulse Ox 98.3 F 81 20 126/73 93 L 03/02/18 08:35 03/02/18 08:35 03/02/18 08:35 03/02/18 08:35 03/02/18 08:35 - Medications Medications: Current Medications Acetaminophen (Tylenol 325mg Tab) 650 mg PO Q6 PRN PRN Reason: Pain, Mild (1-3) Last Admin: 02/27/18 20:09 Dose: 650 mg Acetaminophen (Tylenol 325mg Tab) 650 mg PO Q6 PRN PRN Reason: Fever >100.4 F Last Admin: 02/28/18 20:25 Dose: 650 mg Sodium Chloride (Sodium Chloride 0.9%) 1,000 mls @ 150 mls/hr IV .Q6H40M [facility] Last Admin: 03/02/18 09:01 Dose: 150 mls/hr Meropenem 1 gm/ Sodium (Chloride) 100 mls @ 100 mls/hr IVPB Q8 [facility] PRN Reason: Protocol Last Admin: 03/02/18 09:02 Dose: 100 mls/hr Naproxen (Naprosyn Tab) 375 mg PO Q12 [facility] Last Admin: 03/02/18 09:03 Dose: Not Given Pantoprazole Sodium (Protonix Ec Tab) 40 mg PO DAILY [facility] Last Admin: 03/02/18 09:02 Dose: 40 mg - Labs Labs: 03/02/18 05:30 03/02/18 14:45 Attending/Attestation - Attestation I have personally seen and examined this patient.: Yes I have fully participated in the care of the patient.: Yes I have reviewed all pertinent clinical information, including history, physical exam and plan: Yes
[2018-03-02] MEDS ORDERED: Potassium Chloride 20 mEq ER Tab PO ONE ×2 (09:54→16:44)
--- NOTE | 2018-03-02 11:39 | CP.PCM.PN ---
Subjective - Date & Time of Evaluation Date of Evaluation: 03/02/18 Time of Evaluation: 11:39 - Subjective Subjective: ID note- Pt. states she feels much better today. no back pain, no abd pain, no dysurea. denies any fever or nausea. Objective - Vital Signs/Intake and Output Vital Signs (last 24 hours): Temp Pulse Resp BP Pulse Ox 98.3 F 81 20 126/73 93 L 03/02/18 08:35 03/02/18 08:35 03/02/18 08:35 03/02/18 08:35 03/02/18 08:35 - Medications Medications: Current Medications Acetaminophen (Tylenol 325mg Tab) 650 mg PO Q6 PRN PRN Reason: Pain, Mild (1-3) Last Admin: 02/27/18 20:09 Dose: 650 mg Acetaminophen (Tylenol 325mg Tab) 650 mg PO Q6 PRN PRN Reason: Fever >100.4 F Last Admin: 02/28/18 20:25 Dose: 650 mg Sodium Chloride (Sodium Chloride 0.9%) 1,000 mls @ 150 mls/hr IV .Q6H40M [facility] Last Admin: 03/02/18 09:01 Dose: 150 mls/hr Meropenem 1 gm/ Sodium (Chloride) 100 mls @ 100 mls/hr IVPB Q8 [facility] PRN Reason: Protocol Last Admin: 03/02/18 09:02 Dose: 100 mls/hr Naproxen (Naprosyn Tab) 375 mg PO Q12 [facility] Last Admin: 03/02/18 09:03 Dose: Not Given Pantoprazole Sodium (Protonix Ec Tab) 40 mg PO DAILY [facility] Last Admin: 03/02/18 09:02 Dose: 40 mg - Labs Labs: - Additional Findings Additional findings: - Constitutional Appears: No Acute Distress - Head Exam Head Exam: ATRAUMATIC - Eye Exam Eye Exam: EOMI, PERRL - ENT Exam ENT Exam: Normal Oropharynx - Neck Exam Neck exam: Positive for: Full Rom - Respiratory Exam Respiratory Exam: Clear to Auscultation Bilateral, NORMAL BREATHING PATTERN - Cardiovascular Exam Cardiovascular Exam: RRR, +S1, +S2 - GI/Abdominal Exam GI & Abdominal Exam: Normal Bowel Sounds, Soft Additional comments: no tenderness on palpation of the abdomen No guarding, No rebound - Extremities Exam Extremities exam: Positive for: normal inspection - Neurological Exam Neurological exam: Alert, Oriented x 3 Laboratory Results - last 72 hr 02/27/18 02/28/18 02/28/18 14:59 05:10 05:10 WBC 15.6 H RBC 3.44 L Hgb 10.4 L Hct 30.8 L MCV 89.5 MCH 30.2 MCHC 33.7 RDW 12.8 Plt Count 233 MPV 7.6 Neut % (Auto) 86.8 H Lymph % (Auto) 5.4 L [place] % (Auto) 7.6 Eos % (Auto) 0.0 Baso % (Auto) 0.2 Neut # (Auto) 13.5 H Lymph # (Auto) 0.8 L [place] # (Auto) 1.2 H Eos # (Auto) 0.0 Baso # (Auto) 0.0 Neutrophils % (Manual) 81 H Band Neutrophils % 3 H Lymphocytes % (Manual) 11 L Monocytes % (Manual) 5 Hypersegmented Polys Present Platelet Estimate Normal Anisocytosis (manual) Slight Sodium 139 Potassium 4.1 Chloride 107 Carbon Dioxide 22 Anion Gap 14 BUN 8 Creatinine 0.8 Est GFR ( Amer) > 60 Est GFR (Non-Af Amer) > 60 POC Glucose (mg/dL) Random Glucose 120 H Calcium 7.5 L Total Bilirubin AST ALT Alkaline Phosphatase Total Protein Albumin Globulin Albumin/Globulin Ratio 03/01/18 03/01/18 03/02/18 05:30 05:30 05:30 WBC 15.1 H 10.1 RBC 3.35 L 3.46 L Hgb 10.1 L 10.5 L Hct 29.7 L 30.6 L MCV 88.7 88.4 MCH 30.3 30.5 MCHC 34.1 34.5 RDW 13.0 13.2 Plt Count 244 271 MPV 7.9 Neut % (Auto) 83.4 H Lymph % (Auto) 8.0 L [place] % (Auto) 8.3 Eos % (Auto) 0.0 Baso % (Auto) 0.3 Neut # (Auto) 12.6 H Lymph # (Auto) 1.2 [place] # (Auto) 1.3 H Eos # (Auto) 0.0 Baso # (Auto) 0.0 Neutrophils % (Manual) Band Neutrophils % Lymphocytes % (Manual) Monocytes % (Manual) Hypersegmented Polys Platelet Estimate Anisocytosis (manual) Sodium 139 Potassium 3.7 Chloride 109 H Carbon Dioxide 21 L Anion Gap 13 BUN 7 Creatinine 0.7 Est GFR ( Amer) > 60 Est GFR (Non-Af Amer) > 60 POC Glucose (mg/dL) Random Glucose 104 Calcium 8.1 L Total Bilirubin 0.7 AST 56 H D ALT 65 H D Alkaline Phosphatase 104 Total Protein 6.5 Albumin 3.2 L D Globulin 3.3 Albumin/Globulin Ratio 1.0 03/02/18 03/02/18 03/02/18 05:30 06:09 10:47 WBC RBC Hgb Hct MCV MCH MCHC RDW Plt Count MPV Neut % (Auto) Lymph % (Auto) [place] % (Auto) Eos % (Auto) Baso % (Auto) Neut # (Auto) Lymph # (Auto) [place] # (Auto) Eos # (Auto) Baso # (Auto) Neutrophils % (Manual) Band Neutrophils % Lymphocytes % (Manual) Monocytes % (Manual) Hypersegmented Polys Platelet Estimate Anisocytosis (manual) Sodium 142 Potassium 3.0 L Chloride 109 H Carbon Dioxide 21 L Anion Gap 15 BUN 6 L Creatinine 0.6 L Est GFR ( Amer) > 60 Est GFR (Non-Af Amer) > 60 POC Glucose (mg/dL) 106 113 H Random Glucose 113 H Calcium 8.1 L Total Bilirubin 0.6 AST 50 H ALT 54 H Alkaline Phosphatase 97 Total Protein 6.4 Albumin 3.0 L Globulin 3.4 Albumin/Globulin Ratio 0.9 L 03/02/18 03/02/18 14:45 16:26 WBC RBC Hgb Hct MCV MCH MCHC RDW Plt Count MPV Neut % (Auto) Lymph % (Auto) [place] % (Auto) Eos % (Auto) Baso % (Auto) Neut # (Auto) Lymph # (Auto) [place] # (Auto) Eos # (Auto) Baso # (Auto) Neutrophils % (Manual) Band Neutrophils % Lymphocytes % (Manual) Monocytes % (Manual) Hypersegmented Polys Platelet Estimate Anisocytosis (manual) Sodium 140 Potassium 3.5 L Chloride 108 H Carbon Dioxide 23 Anion Gap 13 BUN 6 L Creatinine 0.6 L Est GFR ( Amer) > 60 Est GFR (Non-Af Amer) > 60 POC Glucose (mg/dL) 79 Random Glucose 95 Calcium 8.0 L Total Bilirubin AST ALT Alkaline Phosphatase Total Protein Albumin Globulin Albumin/Globulin Ratio Microbiology 03/01/18 16:14 Blood-Venous Blood Culture - Preliminary NO GROWTH AFTER 24 HOURS 03/01/18 16:04 Blood-Venous Blood Culture - Preliminary NO GROWTH AFTER 24 HOURS 02/28/18 15:41 Blood-Venous Blood Culture - Preliminary NO GROWTH AFTER 48 HOURS 02/28/18 15:31 Blood-Venous Blood Culture - Preliminary NO GROWTH AFTER 48 HOURS 02/27/18 15:00 Blood Blood Culture - Preliminary NO GROWTH AFTER 3 DAYS 02/27/18 14:40 Blood Blood Culture - Final Escherichia Coli 02/27/18 14:40 Blood Gram Stain - Final 02/27/18 15:10 Urine Urine Culture - Final Escherichia Coli Assessment and Plan (1) UTI (urinary tract infection) Status: Acute (2) Pyelonephritis Status: Acute (3) Leukocytosis Status: Acute - Assessment and Plan (Free Text) Assessment: A/P- 42 year old female with UTI/Right pyelonephritis. afebrile leukocytosis has resolved. + UA ct abd/pelvis- right pyelo as per report blood cx- e.coli pansensntive Urine cx -e.coli pansensitive TTE- no vegetations as per report. repeat blood cx- neg x 4 PLan- has received 3 days of IV meropenem . can de-escalate to IV ceftriaxone 2 gram daily for e.coli bacteremia /UTI since the e.coli is sensitive to this. will need total of 14 days of IV antibiotics. All above d/w patient and she verbalizes full understanding of all above.
--- NOTE | 2018-03-02 14:31 | PQF ---
PROVIDER RESPONSE TEXT: Severe Sepsis sec to Pyelonephritis ( POA) REVIEWER QUERY TEXT: Documentation Clarification Tasneem clarify the type of Sepsis if known. Your help is requested in clarifying the following clinical documentation, if you can please further specify in the medical record and discharge summary. The patient's Clinical Indicators include: Documentation of Sepsis 2* UTI/Pyelonephritis. Blood CS and Urine CS + for E Coli. Treated with Merrem. Query created by: Anny Avelar on 03/02/2018 2:22 PM Electronically signed by: Licha Carlton MD 03/02/2018 2:29 PM
--- NOTE | 2018-03-02 14:41 | PQF ---
PROVIDER RESPONSE TEXT: Severe Sepsis sec to Pyelonephritis ( POA) with Lactate level greater than 2 and decrease of systolic BP 40 less than her baseline REVIEWER QUERY TEXT: Conflicting Documentation Clarification 1) Please clarify if Severe Sepsis is ruled in or ruled out. 2) If ruled in please identify specific acute organ dysfunction. A single mention or documentation of SEVERE SEPSIS by the ER for the same clinical presentation appea rs in the record. Please clarify the diagnosis/diagnoses. Please also document if the condition is: -- Confirmed and current -- Confirmed, treated and resolved -- Ruled out -- Other, please specify The patient's Clinical Indicators include: Presents with abdominal pain, fever, burning on urination, R lower back pain. WBC 14.6 with a L shift, lactate 2.5, Temp 101.5 Urine CS and Blood CS x 1 growing Gram Negative Rods. IVAB Query created by: Anny Avelar on 03/01/2018 9:12 AM Electronically signed by: Licha Carlton MD 03/02/2018 2:39 PM
[2018-03-02 15:50] LABS: BLOOD UREA NITROGEN 6 mg/dl (7-17); GFR AFRICAN-AMERICAN > 60; GFR NON-AFRICAN AMERICAN > 60
[2018-03-03 07:19] LABS: BASO # 0.1 K/uL (0.0-0.2); BASO % 0.8 % (0.0-2.0); EOS # 0.1 K/uL (0.0-0.7); EOS % 0.7 % (0.0-4.0); HEMOGLOBIN 9.7 g/dL (12.0-16.0); LYMPH # 2.1 K/uL (1.0-4.3); MEAN CELL VOLUME 87.1 fl (81.0-99.0); MEAN CORPUSCULAR HEMOGLOBIN 30.4 pg (27.0-31.0); MEAN CORPUSCULAR HGB CONC 34.9 g/dL (33.0-37.0); MEAN PLATELET VOLUME 7.6 fl (7.2-11.7); MONO # 0.9 K/uL (0.0-0.8); NEUT # 4.1 K/uL (1.8-7.0); NEUT % 56.5 % (50.0-75.0); NRBC % 0.1 % (0.0-0.0); RBC 3.2 Mil/uL (3.80-5.20); RED CELL DISTRIBUTION WIDTH 13.3 % (11.5-14.5); WHITE BLOOD COUNT 7.3 K/uL (4.8-10.8)
[2018-03-03 07:43] LABS: BLOOD UREA NITROGEN 4 mg/dl (7-17); GFR AFRICAN-AMERICAN > 60; GFR NON-AFRICAN AMERICAN > 60
[2018-03-03] MEDS ORDERED: Potassium Chloride 20 mEq ER Tab PO ONE (08:27)
[2018-03-03] MEDS: Sodium Chloride 0.9% 1,000 ML IV SCH ×3 (08:29→21:41)
[2018-03-03] MEDS: cefTRIAXone 2 GM in Sodium Chloride 0.9% 100 ML IVPB SCH (08:32)
[2018-03-03] MEDS: Pantoprazole 40 mg EC Tab PO SCH (08:33)
--- NOTE | 2018-03-03 12:40 | CP.PCM.PN ---
Subjective - Date & Time of Evaluation Date of Evaluation: 03/03/18 Time of Evaluation: 11:00 - Subjective Subjective: Pt has low grade fever flank pain resolved hypogastric pain better dysuria resolved no CP no SOB Objective - Vital Signs/Intake and Output Vital Signs (last 24 hours): Temp Pulse Resp BP Pulse Ox 98.5 F 74 20 134/90 94 L 03/03/18 08:25 03/03/18 08:25 03/03/18 08:25 03/03/18 08:25 03/03/18 08:25 - Medications Medications: Current Medications Acetaminophen (Tylenol 325mg Tab) 650 mg PO Q6 PRN PRN Reason: Pain, Mild (1-3) Last Admin: 02/27/18 20:09 Dose: 650 mg Acetaminophen (Tylenol 325mg Tab) 650 mg PO Q6 PRN PRN Reason: Fever >100.4 F Last Admin: 02/28/18 20:25 Dose: 650 mg Sodium Chloride (Sodium Chloride 0.9%) 1,000 mls @ 150 mls/hr IV .Q6H40M [facility] Last Admin: 03/03/18 08:29 Dose: 150 mls/hr Ceftriaxone Sodium 2 gm/ (Sodium Chloride) 100 mls @ 100 mls/hr IVPB DAILY [facility] PRN Reason: Protocol Last Admin: 03/03/18 08:32 Dose: 100 mls/hr Naproxen (Naprosyn Tab) 375 mg PO Q12 [facility] Last Admin: 03/03/18 08:32 Dose: Not Given Pantoprazole Sodium (Protonix Ec Tab) 40 mg PO DAILY [facility] Last Admin: 03/03/18 08:33 Dose: 40 mg - Labs Labs: 03/03/18 05:30 03/03/18 05:30 - Constitutional Appears: No Acute Distress - Head Exam Head Exam: NORMAL INSPECTION, NORMOCEPHALIC - Eye Exam Eye Exam: EOMI, Normal appearance, PERRL Pupil Exam: NORMAL ACCOMODATION - ENT Exam ENT Exam: Mucous Membranes Moist, Normal External Ear Exam - Neck Exam Neck Exam: Full ROM. absent: Meningismus - Respiratory Exam Respiratory Exam: NORMAL BREATHING PATTERN. absent: Respiratory Distress - Cardiovascular Exam Cardiovascular Exam: REGULAR RHYTHM, +S1, +S2 - GI/Abdominal Exam GI & Abdominal Exam: Soft, Normal Bowel Sounds. absent: Tenderness - Extremities Exam Extremities Exam: Full ROM, Normal Capillary Refill. absent: Calf Tenderness, Pedal Edema - Back Exam Back Exam: Full ROM. absent: CVA tenderness (L), CVA tenderness (R) - Neurological Exam Neurological Exam: Alert, Awake, CN II-XII Intact, Normal Gait, Oriented x3 Neuro motor strength exam: Left Upper Extremity: 5, Right Upper Extremity: 5, Left Lower Extremity: 5, Right Lower Extremity: 5 - Psychiatric Exam Psychiatric exam: Normal Affect, Normal Mood - Skin Skin Exam: Dry, Normal Color, Warm Assessment and Plan - Assessment and Plan (Free Text) Assessment: 42 y/o F with no PMH presented to ED complaining of suprapubic pain, dysuria, fever & chills. She was seen at [facility] for similar complaints, and sent home with oral antibiotics, but symptoms worsened. Patient was found to be febrile (101.5 F)with leuokocytosis (14.6). Abd CT showed perinephric stranding and edematous right kidney, consistent wit pyelonephritis. Patient was given rocephin, which was switched to meropenem because of increased spike in WBC. Blood Culture & Urine Cultures were both + for E.Coli. Echocardiogram was negative for vegetations. 1. Severe Sepsis secondary to Acute Pyelonephritis with Bacteremia, E coli -Lactate was elevated at 2.5 on admission - Meropenem switched to IV ceftriaxone by ID - Blood c/s : E coli sensitive to Ceftriaxone - ID rec 14 days of IV abx - Will have PICC line place and d/c pt on Home IV abx once pt is afebrile and rpt Blood c/s are NEGATIVE 2. Hypokalemia -Given 40 mEQ of Potassium
[2018-03-03] MEDS: Enoxaparin 40 mg Syringe SC SCH (18:13)
[2018-03-04] MEDS: Sodium Chloride 0.9% 1,000 ML IV SCH ×2 (05:00→12:38)
[2018-03-04 07:39] LABS: INR 1.1; PROTHROMBIN TIME 12.6 Seconds (9.8-13.1)
[2018-03-04 07:41] LABS: PARTIAL THROMBOPLASTIN TIME 28.6 Seconds (25.6-37.1)
[2018-03-04 07:45] LABS: MEAN CELL VOLUME 88.4 fl (81.0-99.0); MEAN CORPUSCULAR HEMOGLOBIN 30.2 pg (27.0-31.0); MEAN CORPUSCULAR HGB CONC 34.1 g/dL (33.0-37.0); RBC 3.32 Mil/uL (3.80-5.20); RED CELL DISTRIBUTION WIDTH 13.5 % (11.5-14.5)
[2018-03-04 08:08] LABS: BLOOD UREA NITROGEN 5 mg/dl (7-17); CALCIUM 8.1 mg/dL (8.4-10.2); GFR AFRICAN-AMERICAN > 60; GFR NON-AFRICAN AMERICAN > 60
[2018-03-04] MEDS: Enoxaparin 40 mg Syringe SC SCH (09:09)
[2018-03-04] MEDS: Pantoprazole 40 mg EC Tab PO SCH (09:09)
[2018-03-04] MEDS: cefTRIAXone 2 GM in Sodium Chloride 0.9% 100 ML IVPB SCH (09:09)
--- NOTE | 2018-03-04 09:45 | CP.PCM.PN ---
Subjective - Date & Time of Evaluation Date of Evaluation: 03/04/18 Time of Evaluation: 09:30 - Subjective Subjective: Had low grade fever yesterday - no fever so far today leukocytosis reslved Flank pain resolved no CP no SOB no abd pain Objective - Vital Signs/Intake and Output Vital Signs (last 24 hours): Temp Pulse Resp BP Pulse Ox 98 F 64 18 117/78 100 03/04/18 08:21 03/04/18 08:21 03/04/18 08:21 03/04/18 08:21 03/04/18 08:21 - Medications Medications: Current Medications Acetaminophen (Tylenol 325mg Tab) 650 mg PO Q6 PRN PRN Reason: Pain, Mild (1-3) Last Admin: 02/27/18 20:09 Dose: 650 mg Acetaminophen (Tylenol 325mg Tab) 650 mg PO Q6 PRN PRN Reason: Fever >100.4 F Last Admin: 02/28/18 20:25 Dose: 650 mg Enoxaparin Sodium (Lovenox) 40 mg SC DAILY [facility] PRN Reason: Protocol Last Admin: 03/04/18 09:09 Dose: 40 mg Sodium Chloride (Sodium Chloride 0.9%) 1,000 mls @ 150 mls/hr IV .Q6H40M [facility] Last Admin: 03/04/18 05:00 Dose: 150 mls/hr Ceftriaxone Sodium 2 gm/ (Sodium Chloride) 100 mls @ 100 mls/hr IVPB DAILY [facility] PRN Reason: Protocol Last Admin: 03/04/18 09:09 Dose: 100 mls/hr Naproxen (Naprosyn Tab) 375 mg PO Q12 [facility] Last Admin: 03/04/18 09:09 Dose: Not Given Pantoprazole Sodium (Protonix Ec Tab) 40 mg PO DAILY [facility] Last Admin: 03/04/18 09:09 Dose: 40 mg - Labs Labs: 03/04/18 06:00 03/04/18 06:00 PT 12.6 Seconds (9.8-13.1) 03/04/18 06:00 INR 1.1 03/04/18 06:00 APTT 28.6 Seconds (25.6-37.1) 03/04/18 06:00 - Constitutional Appears: No Acute Distress - Head Exam Head Exam: NORMAL INSPECTION, NORMOCEPHALIC - Eye Exam Eye Exam: EOMI, Normal appearance, PERRL Pupil Exam: NORMAL ACCOMODATION - ENT Exam ENT Exam: Mucous Membranes Moist, Normal External Ear Exam - Neck Exam Neck Exam: Full ROM. absent: Meningismus - Respiratory Exam Respiratory Exam: NORMAL BREATHING PATTERN. absent: Respiratory Distress - Cardiovascular Exam Cardiovascular Exam: REGULAR RHYTHM, +S1, +S2 - GI/Abdominal Exam GI & Abdominal Exam: Soft, Normal Bowel Sounds. absent: Tenderness - Extremities Exam Extremities Exam: Full ROM, Normal Capillary Refill. absent: Calf Tenderness, Pedal Edema - Back Exam Back Exam: Full ROM. absent: CVA tenderness (L), CVA tenderness (R) - Neurological Exam Neurological Exam: Alert, Awake, CN II-XII Intact, Normal Gait, Oriented x3 Neuro motor strength exam: Left Upper Extremity: 5, Right Upper Extremity: 5, Left Lower Extremity: 5, Right Lower Extremity: 5 - Psychiatric Exam Psychiatric exam: Normal Affect, Normal Mood - Skin Skin Exam: Dry, Normal Color, Warm Assessment and Plan - Assessment and Plan (Free Text) Assessment: 42 y/o F with no PMH presented to ED complaining of suprapubic pain, dysuria, fever & chills. She was seen at [facility] for similar complaints, and sent home with oral antibiotics, but symptoms worsened. Patient was found to be febrile (101.5 F)with leuokocytosis (14.6). Abd CT showed perinephric stranding and edematous right kidney, consistent wit pyelonephritis. Patient was given rocephin, which was switched to meropenem because of increased spike in WBC. Blood Culture & Urine Cultures were both + for E.Coli. Echocardiogram was negative for vegetations. 1. Severe Sepsis secondary to Acute Pyelonephritis with Bacteremia, E coli -Lactate was elevated at 2.5 on admission - initially on Meropenem, switched to IV ceftriaxone by ID - Blood c/s : E coli sensitive to Ceftriaxone - ID rec 14 days of IV abx - Will have PICC line placed tomorrow and d/c pt on Home IV abx - if pt is afebrile and rpt Blood c/s are NEGATIVE 2. Hypokalemia, resolved -Given 40 mEQ of Potassium
[2018-03-04 23:50] VITALS: O2SAT 98
[2018-03-05] MEDS: Pantoprazole 40 mg EC Tab PO SCH (08:41)
[2018-03-05] MEDS: cefTRIAXone 2 GM in Sodium Chloride 0.9% 100 ML IVPB SCH (08:41)
--- NOTE | 2018-03-05 10:36 | CP.PCM.PN ---
Subjective - Date & Time of Evaluation Date of Evaluation: 03/05/18 Time of Evaluation: 10:36 - Subjective Subjective: ID note- Pt. seen and examined today. denies any dysurea or any abd. pain. remains afebrile. Objective - Vital Signs/Intake and Output Vital Signs (last 24 hours): Temp Pulse Resp BP Pulse Ox 98.5 F 86 20 148/82 98 03/05/18 08:01 03/05/18 08:01 03/05/18 08:01 03/05/18 08:01 03/05/18 08:01 - Medications Medications: Current Medications Acetaminophen (Tylenol 325mg Tab) 650 mg PO Q6 PRN PRN Reason: Pain, Mild (1-3) Last Admin: 02/27/18 20:09 Dose: 650 mg Acetaminophen (Tylenol 325mg Tab) 650 mg PO Q6 PRN PRN Reason: Fever >100.4 F Last Admin: 02/28/18 20:25 Dose: 650 mg Ceftriaxone Sodium 2 gm/ (Sodium Chloride) 100 mls @ 100 mls/hr IVPB DAILY LOUIE PRN Reason: Protocol Last Admin: 03/05/18 08:41 Dose: 100 mls/hr Naproxen (Naprosyn Tab) 375 mg PO Q12 LOUIE Last Admin: 03/05/18 08:40 Dose: 375 mg Pantoprazole Sodium (Protonix Ec Tab) 40 mg PO DAILY LOUIE Last Admin: 03/05/18 08:41 Dose: 40 mg - Labs Labs: - Additional Findings Additional findings: - Constitutional Appears: No Acute Distress - Head Exam Head Exam: ATRAUMATIC - Eye Exam Eye Exam: EOMI, PERRL - ENT Exam ENT Exam: Normal Oropharynx - Neck Exam Neck exam: Positive for: Full Rom - Respiratory Exam Respiratory Exam: Clear to Auscultation Bilateral, NORMAL BREATHING PATTERN - Cardiovascular Exam Cardiovascular Exam: RRR, +S1, +S2 - GI/Abdominal Exam GI & Abdominal Exam: Normal Bowel Sounds, Soft Additional comments: no tenderness on palpation of the abdomen No guarding, No rebound NO CVA tenderness b/l - Extremities Exam Extremities exam: Positive for: normal inspection - Neurological Exam Neurological exam: Alert, Oriented x 3 Laboratory Results - last 72 hr 03/02/18 03/02/18 03/03/18 16:26 21:18 05:27 WBC RBC Hgb Hct MCV MCH MCHC RDW Plt Count MPV Neut % (Auto) Lymph % (Auto) [place] % (Auto) Eos % (Auto) Baso % (Auto) Neut # (Auto) Lymph # (Auto) [place] # (Auto) Eos # (Auto) Baso # (Auto) PT INR APTT Sodium Potassium Chloride Carbon Dioxide Anion Gap BUN Creatinine Est GFR ( Amer) Est GFR (Non-Af Amer) POC Glucose (mg/dL) 79 96 85 Random Glucose Calcium 03/03/18 03/03/18 03/03/18 05:30 05:30 11:32 WBC 7.3 RBC 3.20 L Hgb 9.7 L Hct 27.9 L MCV 87.1 MCH 30.4 MCHC 34.9 RDW 13.3 Plt Count 325 MPV 7.6 Neut % (Auto) 56.5 Lymph % (Auto) 29.0 [place] % (Auto) 13.0 H Eos % (Auto) 0.7 Baso % (Auto) 0.8 Neut # (Auto) 4.1 Lymph # (Auto) 2.1 [place] # (Auto) 0.9 H Eos # (Auto) 0.1 Baso # (Auto) 0.1 PT INR APTT Sodium 141 Potassium 3.3 L Chloride 109 H Carbon Dioxide 23 Anion Gap 12 BUN 4 L Creatinine 0.6 L Est GFR ( Amer) > 60 Est GFR (Non-Af Amer) > 60 POC Glucose (mg/dL) 115 H Random Glucose 92 Calcium 8.0 L 03/03/18 03/03/18 03/04/18 16:02 21:56 06:00 WBC 7.0 RBC 3.32 L Hgb 10.0 L Hct 29.3 L MCV 88.4 MCH 30.2 MCHC 34.1 RDW 13.5 Plt Count 385 MPV Neut % (Auto) Lymph % (Auto) [place] % (Auto) Eos % (Auto) Baso % (Auto) Neut # (Auto) Lymph # (Auto) [place] # (Auto) Eos # (Auto) Baso # (Auto) PT INR APTT Sodium Potassium Chloride Carbon Dioxide Anion Gap BUN Creatinine Est GFR ( Amer) Est GFR (Non-Af Amer) POC Glucose (mg/dL) 123 H 94 Random Glucose Calcium 03/04/18 03/04/18 06:00 06:00 WBC RBC Hgb Hct MCV MCH MCHC RDW Plt Count MPV Neut % (Auto) Lymph % (Auto) [place] % (Auto) Eos % (Auto) Baso % (Auto) Neut # (Auto) Lymph # (Auto) [place] # (Auto) Eos # (Auto) Baso # (Auto) PT 12.6 INR 1.1 APTT 28.6 Sodium 141 Potassium 4.0 Chloride 107 Carbon Dioxide 25 Anion Gap 13 BUN 5 L Creatinine 0.6 L Est GFR ( Amer) > 60 Est GFR (Non-Af Amer) > 60 POC Glucose (mg/dL) Random Glucose 94 Calcium 8.1 L Microbiology 03/02/18 08:52 Blood Blood Culture - Preliminary NO GROWTH AFTER 3 DAYS 03/01/18 16:14 Blood-Venous Blood Culture - Preliminary NO GROWTH AFTER 3 DAYS 03/01/18 16:04 Blood-Venous Blood Culture - Preliminary NO GROWTH AFTER 3 DAYS 02/28/18 15:41 Blood-Venous Blood Culture - Preliminary NO GROWTH AFTER 4 DAYS 02/28/18 15:31 Blood-Venous Blood Culture - Preliminary NO GROWTH AFTER 4 DAYS 02/27/18 15:00 Blood Blood Culture - Final NO GROWTH AFTER 5 DAYS 02/27/18 15:00 Blood Gram Stain - Final TEST NOT PERFORMED 02/27/18 14:40 Blood Blood Culture - Final Escherichia Coli 02/27/18 14:40 Blood Gram Stain - Final 02/27/18 15:10 Urine Urine Culture - Final Escherichia Coli Assessment and Plan (1) UTI (urinary tract infection) Status: Acute (2) Pyelonephritis Status: Acute (3) Leukocytosis Status: Acute - Assessment and Plan (Free Text) Assessment: A/P- 42 year old female with UTI/Right pyelonephritis. clinically much has remained afebrile leukocytosis has resolved. + UA admissionct abd/pelvis- right pyelo as per report blood cx- e.coli pansensntive Urine cx -e.coli pansensitive TTE- no vegetations as per report. repeat blood cx- neg x 5 PLan- had received 3 days of IV meropenem . switched to IV ceftriaxone 3 days ago . IV ceftriaxone 2 gram daily for e.coli bacteremia /UTI since the e.coli is sensitive to this. will need total of 14 days of IV antibiotics.( hence 8 more days). s/p picc lien today. can be d/c on IV ceftriaoxne 2 gram daily for 8 days as outpatietn. social work/case management to determine if can be done at Home via vising nurse. pt. to f/u with both her PMD and with me in 7-10 days. All above d/w patient and she verbalizes full understanding of all above.
[2018-03-05] MEDS ORDERED: Lidocaine Hydrochloride 1% 10 ML ONE (11:49)
[2018-03-05 12:29] VITALS: BP 146/78; PULSE 76; RESP 18; TEMP 98.6
--- NOTE | 2018-03-05 12:48 | PCM.SURG1 ---
Surgeon's Initial Post Op Note - Surgeon's Notes Surgeon: Abhijeet Palma MD Linux Engineer: NONE Type of Anesthesia: Local Pre-Operative Diagnosis: UTI Operative Findings: US showed patent left basilic vein Post-Operative Diagnosis: UTI Operation Performed: PICC placement Specimen/Specimens Removed: none Estimated Blood Loss: EBL {In ML}: 2 Blood Products Given: N/A Drains Used: No Drains Post-Op Condition: Good Date of Surgery/Procedure: 03/05/18 Time of Surgery/Procedure: 12:45
--- NOTE | 2018-03-05 13:12 | CP.PCM.DIS ---
Addendum entered and electronically signed by Amy Hui MD 03/05/18 16:00: Patient to f/u with PCP & Dr. Fox in 7-10 days. Original Note: <Amy Hui - Last Filed: 03/05/18 15:52> Provider - Provider Date of Admission: 02/27/18 16:26 Attending physician: Orlin David MD Consults: Dr. Fox Time Spent in preparation of Discharge (in minutes): 30 Diagnosis - Discharge Diagnosis (1) Severe sepsis Status: Acute (2) Acute pyelonephritis Status: Acute (3) Bacteremia Status: Acute Hospital Course - Lab Results Lab Results: Micro Results 03/02/18 08:52 Blood Blood Culture - Preliminary NO GROWTH AFTER 3 DAYS 03/01/18 16:14 Blood-Venous Blood Culture - Preliminary NO GROWTH AFTER 3 DAYS 03/01/18 16:04 Blood-Venous Blood Culture - Preliminary NO GROWTH AFTER 3 DAYS 02/28/18 15:41 Blood-Venous Blood Culture - Preliminary NO GROWTH AFTER 4 DAYS 02/28/18 15:31 Blood-Venous Blood Culture - Preliminary NO GROWTH AFTER 4 DAYS 02/27/18 15:00 Blood Blood Culture - Final NO GROWTH AFTER 5 DAYS 02/27/18 15:00 Blood Gram Stain - Final TEST NOT PERFORMED 02/27/18 14:40 Blood Blood Culture - Final Escherichia Coli 02/27/18 14:40 Blood Gram Stain - Final 02/27/18 15:10 Urine Urine Culture - Final Escherichia Coli Most Recent Lab Values WBC 7.0 K/uL (4.8-10.8) 03/04/18 06:00 RBC 3.32 Mil/uL (3.80-5.20) L 03/04/18 06:00 Hgb 10.0 g/dL (12.0-16.0) L 03/04/18 06:00 Hct 29.3 % (34.0-47.0) L 03/04/18 06:00 MCV 88.4 fl (81.0-99.0) 03/04/18 06:00 MCH 30.2 pg (27.0-31.0) 03/04/18 06:00 MCHC 34.1 g/dL (33.0-37.0) 03/04/18 06:00 RDW 13.5 % (11.5-14.5) 03/04/18 06:00 Plt Count 385 K/uL (130-400) 03/04/18 06:00 MPV 7.6 fl (7.2-11.7) 03/03/18 05:30 Neut % (Auto) 56.5 % (50.0-75.0) 03/03/18 05:30 Lymph % (Auto) 29.0 % (20.0-40.0) 03/03/18 05:30 [place] % (Auto) 13.0 % (0.0-10.0) H 03/03/18 05:30 Eos % (Auto) 0.7 % (0.0-4.0) 03/03/18 05:30 Baso % (Auto) 0.8 % (0.0-2.0) 03/03/18 05:30 Neut # (Auto) 4.1 K/uL (1.8-7.0) 03/03/18 05:30 Lymph # (Auto) 2.1 K/uL (1.0-4.3) 03/03/18 05:30 [place] # (Auto) 0.9 K/uL (0.0-0.8) H 03/03/18 05:30 Eos # (Auto) 0.1 K/uL (0.0-0.7) 03/03/18 05:30 Baso # (Auto) 0.1 K/uL (0.0-0.2) 03/03/18 05:30 Neutrophils % (Manual) 81 % (42-75) H 02/27/18 14:59 Band Neutrophils % 3 % (0-2) H 02/27/18 14:59 Lymphocytes % (Manual) 11 % (20-50) L 02/27/18 14:59 Monocytes % (Manual) 5 % (0-10) 02/27/18 14:59 Hypersegmented Polys Present 02/27/18 14:59 Platelet Estimate Normal (NORMAL) 02/27/18 14:59 Anisocytosis (manual) Slight 02/27/18 14:59 PT 12.6 Seconds (9.8-13.1) 03/04/18 06:00 INR 1.1 03/04/18 06:00 APTT 28.6 Seconds (25.6-37.1) 03/04/18 06:00 pO2 37 mm/Hg (30-55) 02/27/18 18:02 VBG pH 7.38 (7.32-7.43) 02/27/18 18:02 VBG pCO2 40 mmHg (40-60) 02/27/18 18:02 VBG HCO3 23.2 mmol/L 02/27/18 18:02 VBG Total CO2 24.9 mmol/L (22-28) 02/27/18 18:02 VBG O2 Sat (Calc) 67.4 % (40-65) H 02/27/18 18:02 VBG Base Excess -1.3 mmol/L (0.0-2.0) L 02/27/18 18:02 VBG Potassium 3.6 mmol/L (3.6-5.2) 02/27/18 18:02 Sodium 137.0 mmol/L (132-148) 02/27/18 18:02 Chloride 106.0 mmol/L (98-107) 02/27/18 18:02 Glucose 120 mg/dL (65-105) H 02/27/18 18:02 Lactate 0.8 mmol/L (0.7-2.1) 02/27/18 18:02 FiO2 21.0 % 02/27/18 18:02 Crit Value Called To Dr stephy shepard 02/27/18 15:30 Crit Value Called By [id number] 02/27/18 15:30 Crit Value Read Back Y 02/27/18 15:30 Blood Gas Notified Time 1535 02/27/18 15:30 Sodium 141 mmol/l (132-148) 03/04/18 06:00 Potassium 4.0 MMOL/L (3.6-5.0) 03/04/18 06:00 Chloride 107 mmol/L (98-107) 03/04/18 06:00 Carbon Dioxide 25 mmol/L (22-30) 03/04/18 06:00 Anion Gap 13 (10-20) 03/04/18 06:00 BUN 5 mg/dl (7-17) L 03/04/18 06:00 Creatinine 0.6 mg/dl (0.7-1.2) L 03/04/18 06:00 Est GFR ( Amer) > 60 03/04/18 06:00 Est GFR (Non-Af Amer) > 60 03/04/18 06:00 POC Glucose (mg/dL) 94 mg/dL (65-110) 03/03/18 21:56 Random Glucose 94 mg/dL (65-105) 03/04/18 06:00 Calcium 8.1 mg/dL (8.4-10.2) L 03/04/18 06:00 Total Bilirubin 0.6 mg/dl (0.2-1.3) 03/02/18 05:30 AST 50 U/L (14-36) H 03/02/18 05:30 ALT 54 U/L (9-52) H 03/02/18 05:30 Alkaline Phosphatase 97 U/L (38-126) 03/02/18 05:30 Total Protein 6.4 G/DL (6.3-8.2) 03/02/18 05:30 Albumin 3.0 g/dL (3.5-5.0) L 03/02/18 05:30 Globulin 3.4 gm/dL (2.2-3.9) 03/02/18 05:30 Albumin/Globulin Ratio 0.9 (1.0-2.1) L 03/02/18 05:30 Venous Blood Potassium 3.6 mmol/L (3.6-5.2) 02/27/18 18:02 Urine Color [place] (YELLOW) 02/27/18 15:10 Urine Clarity Slighty-cloudy (Clear) 02/27/18 15:10 Urine pH 7.0 (5.0-8.0) 02/27/18 15:10 Ur Specific [place] 1.016 (1.003-1.030) 02/27/18 15:10 Urine Protein 100 mg/dL (NEGATIVE) 02/27/18 15:10 Urine Glucose (UA) Neg mg/dL (Normal) 02/27/18 15:10 Urine Ketones Negative mg/dL (NEGATIVE) 02/27/18 15:10 Urine Blood Moderate (NEGATIVE) 02/27/18 15:10 Urine Nitrate Positive (NEGATIVE) H 02/27/18 15:10 Urine Bilirubin Negative (NEGATIVE) 02/27/18 15:10 Urine Urobilinogen 4.0 mg/dL (0.2-1.0) H 02/27/18 15:10 Ur Leukocyte Esterase Small [place]/uL (Negative) 02/27/18 15:10 Urine RBC (Auto) 12 /hpf (0-3) H 02/27/18 15:10 Urine Microscopic WBC 205 /hpf (0-5) H 02/27/18 15:10 Ur Squamous Epith Cells 1 /hpf (0-5) 02/27/18 15:10 Urine Bacteria Mod (<OCC) H 02/27/18 15:10 - Hospital Course Hospital Course: 42 y/o F with no PMH who presented to ED with complaints of suprapubic pain, dysuria, fever & chills after going to [facility] for similar complaints and received PO antibiotics. Here, patient was found to have severe sepsis secondary to pyelonephritis with bacteremia. Patient was started on rocephin initially, but because of spiking fevers was switched to meropenem. Urine and blood culture with both + for E. coli. E.Coli was found to be sensitive to ceftriaxone. 1. Severe Sepsis secondary Pyelonephritis -Discharge today following Picc line insertion -Will receive IV Ceftriaxone 2g QD via picc x 1 week 2. Bacteremia -Will continue IV Ceftriaxone 2g QD via picc line x 1 week Discharge Exam - Head Exam Head Exam: NORMAL INSPECTION, NORMOCEPHALIC - Eye Exam Eye Exam: EOMI - ENT Exam ENT Exam: Mucous Membranes Moist - Neck Exam Neck exam: Full Rom - Respiratory Exam Respiratory Exam: Clear to PA & Lateral - Cardiovascular Exam Cardiovascular Exam: REGULAR RHYTHM, +S1, +S2 - GI/Abdominal Exam GI & Abdominal Exam: Normal Bowel Sounds, Soft, Unremarkable - Extremities Exam Additional comments: calves nontender - Back Exam Back exam: NORMAL INSPECTION Additional comments: no CVA tenderness Discharge Plan - Discharge Medications Prescriptions: Ceftriaxone Sodium [Ceftriaxone] 2 gm IV DAILY 7 Days #7 vial.port - Follow Up Plan Condition: FAIR Disposition: HOME/ ROUTINE Instructions: Urinary Tract Infection, Adult (DC), Peripherally-Inserted Central Catheter (DC), Dysuria (GEN) Additional Instructions: follow up with primary MD 1 week Home IV antibiotics x 1 wk - Ceftriaxone 2 grams daily [facility] ff up with Dr Fox in 1 wk- [phone] Referrals: Sudhakar Fox MD [Staff Provider] - Jose Avila MD [Family Provider] - <Licha Carlton - Last Filed: 03/05/18 16:10> Provider - Provider Date of Admission: 02/27/18 16:26 Attending physician: Orlin David MD Hospital Course - Lab Results Lab Results: Micro Results 03/02/18 08:52 Blood Blood Culture - Preliminary NO GROWTH AFTER 3 DAYS 03/01/18 16:14 Blood-Venous Blood Culture - Preliminary NO GROWTH AFTER 3 DAYS 03/01/18 16:04 Blood-Venous Blood Culture - Preliminary NO GROWTH AFTER 3 DAYS 02/28/18 15:41 Blood-Venous Blood Culture - Preliminary NO GROWTH AFTER 4 DAYS 02/28/18 15:31 Blood-Venous Blood Culture - Preliminary NO GROWTH AFTER 4 DAYS 02/27/18 15:00 Blood Blood Culture - Final NO GROWTH AFTER 5 DAYS 02/27/18 15:00 Blood Gram Stain - Final TEST NOT PERFORMED 02/27/18 14:40 Blood Blood Culture - Final Escherichia Coli 02/27/18 14:40 Blood Gram Stain - Final 02/27/18 15:10 Urine Urine Culture - Final Escherichia Coli Most Recent Lab Values WBC 7.0 K/uL (4.8-10.8) 03/04/18 06:00 RBC 3.32 Mil/uL (3.80-5.20) L 03/04/18 06:00 Hgb 10.0 g/dL (12.0-16.0) L 03/04/18 06:00 Hct 29.3 % (34.0-47.0) L 03/04/18 06:00 MCV 88.4 fl (81.0-99.0) 03/04/18 06:00 MCH 30.2 pg (27.0-31.0) 03/04/18 06:00 MCHC 34.1 g/dL (33.0-37.0) 03/04/18 06:00 RDW 13.5 % (11.5-14.5) 03/04/18 06:00 Plt Count 385 K/uL (130-400) 03/04/18 06:00 MPV 7.6 fl (7.2-11.7) 03/03/18 05:30 Neut % (Auto) 56.5 % (50.0-75.0) 03/03/18 05:30 Lymph % (Auto) 29.0 % (20.0-40.0) 03/03/18 05:30 [place] % (Auto) 13.0 % (0.0-10.0) H 03/03/18 05:30 Eos % (Auto) 0.7 % (0.0-4.0) 03/03/18 05:30 Baso % (Auto) 0.8 % (0.0-2.0) 03/03/18 05:30 Neut # (Auto) 4.1 K/uL (1.8-7.0) 03/03/18 05:30 Lymph # (Auto) 2.1 K/uL (1.0-4.3) 03/03/18 05:30 [place] # (Auto) 0.9 K/uL (0.0-0.8) H 03/03/18 05:30 Eos # (Auto) 0.1 K/uL (0.0-0.7) 03/03/18 05:30 Baso # (Auto) 0.1 K/uL (0.0-0.2) 03/03/18 05:30 Neutrophils % (Manual) 81 % (42-75) H 02/27/18 14:59 Band Neutrophils % 3 % (0-2) H 02/27/18 14:59 Lymphocytes % (Manual) 11 % (20-50) L 02/27/18 14:59 Monocytes % (Manual) 5 % (0-10) 02/27/18 14:59 Hypersegmented Polys Present 02/27/18 14:59 Platelet Estimate Normal (NORMAL) 02/27/18 14:59 Anisocytosis (manual) Slight 02/27/18 14:59 PT 12.6 Seconds (9.8-13.1) 03/04/18 06:00 INR 1.1 03/04/18 06:00 APTT 28.6 Seconds (25.6-37.1) 03/04/18 06:00 pO2 37 mm/Hg (30-55) 02/27/18 18:02 VBG pH 7.38 (7.32-7.43) 02/27/18 18:02 VBG pCO2 40 mmHg (40-60) 02/27/18 18:02 VBG HCO3 23.2 mmol/L 02/27/18 18:02 VBG Total CO2 24.9 mmol/L (22-28) 02/27/18 18:02 VBG O2 Sat (Calc) 67.4 % (40-65) H 02/27/18 18:02 VBG Base Excess -1.3 mmol/L (0.0-2.0) L 02/27/18 18:02 VBG Potassium 3.6 mmol/L (3.6-5.2) 02/27/18 18:02 Sodium 137.0 mmol/L (132-148) 02/27/18 18:02 Chloride 106.0 mmol/L (98-107) 02/27/18 18:02 Glucose 120 mg/dL (65-105) H 02/27/18 18:02 Lactate 0.8 mmol/L (0.7-2.1) 02/27/18 18:02 FiO2 21.0 % 02/27/18 18:02 Crit Value Called To Dr stephy shepard 02/27/18 15:30 Crit Value Called By [id number] 02/27/18 15:30 Crit Value Read Back Y 02/27/18 15:30 Blood Gas Notified Time 1535 02/27/18 15:30 Sodium 141 mmol/l (132-148) 03/04/18 06:00 Potassium 4.0 MMOL/L (3.6-5.0) 03/04/18 06:00 Chloride 107 mmol/L (98-107) 03/04/18 06:00 Carbon Dioxide 25 mmol/L (22-30) 03/04/18 06:00 Anion Gap 13 (10-20) 03/04/18 06:00 BUN 5 mg/dl (7-17) L 03/04/18 06:00 Creatinine 0.6 mg/dl (0.7-1.2) L 03/04/18 06:00 Est GFR ( Amer) > 60 03/04/18 06:00 Est GFR (Non-Af Amer) > 60 03/04/18 06:00 POC Glucose (mg/dL) 94 mg/dL (65-110) 03/03/18 21:56 Random Glucose 94 mg/dL (65-105) 03/04/18 06:00 Calcium 8.1 mg/dL (8.4-10.2) L 03/04/18 06:00 Total Bilirubin 0.6 mg/dl (0.2-1.3) 03/02/18 05:30 AST 50 U/L (14-36) H 03/02/18 05:30 ALT 54 U/L (9-52) H 03/02/18 05:30 Alkaline Phosphatase 97 U/L (38-126) 03/02/18 05:30 Total Protein 6.4 G/DL (6.3-8.2) 03/02/18 05:30 Albumin 3.0 g/dL (3.5-5.0) L 03/02/18 05:30 Globulin 3.4 gm/dL (2.2-3.9) 03/02/18 05:30 Albumin/Globulin Ratio 0.9 (1.0-2.1) L 03/02/18 05:30 Venous Blood Potassium 3.6 mmol/L (3.6-5.2) 02/27/18 18:02 Urine Color [place] (YELLOW) 02/27/18 15:10 Urine Clarity Slighty-cloudy (Clear) 02/27/18 15:10 Urine pH 7.0 (5.0-8.0) 02/27/18 15:10 Ur Specific [place] 1.016 (1.003-1.030) 02/27/18 15:10 Urine Protein 100 mg/dL (NEGATIVE) 02/27/18 15:10 Urine Glucose (UA) Neg mg/dL (Normal) 02/27/18 15:10 Urine Ketones Negative mg/dL (NEGATIVE) 02/27/18 15:10 Urine Blood Moderate (NEGATIVE) 02/27/18 15:10 Urine Nitrate Positive (NEGATIVE) H 02/27/18 15:10 Urine Bilirubin Negative (NEGATIVE) 02/27/18 15:10 Urine Urobilinogen 4.0 mg/dL (0.2-1.0) H 02/27/18 15:10 Ur Leukocyte Esterase Small [place]/uL (Negative) 02/27/18 15:10 Urine RBC (Auto) 12 /hpf (0-3) H 02/27/18 15:10 Urine Microscopic WBC 205 /hpf (0-5) H 02/27/18 15:10 Ur Squamous Epith Cells 1 /hpf (0-5) 02/27/18 15:10 Urine Bacteria Mod (<OCC) H 02/27/18 15:10 Attending/Attestation - Attestation I have personally seen and examined this patient.: Yes I have fully participated in the care of the patient.: Yes I have reviewed all pertinent clinical information, including history, physical exam and plan: Yes Notes (Text): 1. Severe Sepsis secondary to Acute Pyelonephritis with E coli Bacteremia -Lactate was elevated at 2.5 on admission - initially on Meropenem, switched to IV ceftriaxone by ID - Blood c/s : E coli sensitive to Ceftriaxone - ID rec 14 days of IV abx - PICC line placed - will d/c pt on Home IV abx - rpt blood c/s and urine c/s : no growth - ff up with Dr Fox and PMDanilo in 1 wk
--- NOTE | 2018-03-05 13:26 | VASCULAR ---
PROCEDURE: Date of procedure: 03/05/2018 Procedure: 1. Placement of a left arm PICC with ultrasound and fluoroscopic guidance, CPT 85025 2. PICC tip confirmation with spot radiograph and is in the superior vena cava Medications: 1 percent lidocaine Total Fluoro time: 4.1 seconds Radiation: 0.44 MGy EBL: 3 cc HISTORY: Infection requiring long-term IV antibiotics TECHNIQUE: Following informed consent and procedure time-out, the patient placed supine on the interventional table and the left arm prepped and draped in the usual sterile fashion. Ultrasound showed a patent and compressible left basilic vein. After the skin was anesthetized with lidocaine, the basilic vein was accessed with micro micropuncture technique using ultrasound guidance. A guidewire was then advanced under fluoroscopic guidance into the superior vena cava. An image documenting ultrasound guidance for vascular access was permanently saved. The length of a single-lumen 4 [place] PICC was trimmed to 39 cm and advanced through a peel-away sheath. The PICC was position with tip of PICC confirm a spot radiograph the superior vena cava. The PICC was secured to the patient's skin. The PICC was flushed. A biopatch and sterile dressing was applied. IMPRESSION: Placement of a single-lumen 4 [place] PICC left basilic vein trimmed to 39 cm. The tip of the PICC is confirmed with spot radiograph and is in the superior vena cava.
== END 2018-03-05 14:00 | disposition home health service (06) | DRG 872 ==
LOC: H.ER 14:04 → H.ERHOLD 16:26 → H.TEL 20:50 → H.MEDSURG1 03-01 23:35
PROC: 02HV33Z Insertion of Infusion Device into Superior Vena Cava, Percutaneous Approach (ICD-10-PCS; principal; 2018-03-05)
PROC: B518YZA Fluoroscopy of Superior Vena Cava using Other Contrast, Guidance (ICD-10-PCS; 2018-03-05)
PROC: 3E04329 Introduction of Other Anti-infective into Central Vein, Percutaneous Approach (ICD-10-PCS; 2018-03-05)
DX: A41.51 Sepsis due to Escherichia coli [E. coli] (principal); N10 Acute pyelonephritis; R65.20 Severe sepsis without septic shock; E87.6 Hypokalemia; Z16.39 Resistance to other specified antimicrobial drug; Z87.440 Personal history of urinary (tract) infections; Z91.013 Allergy to seafood

== ENCOUNTER 2018-08-06 09:14 | Emergency (ER) | payer BC ==
[2018-08-06 09:15] VITALS: BMI 29.2
[2018-08-06 09:20] VITALS: TEMP 98.3; O2SAT 100
[2018-08-06] MEDS ORDERED: Dexamethasone 10 MG in Sodium Chloride 0.9% 50 ML IV ONE (10:03)
[2018-08-06] MEDS ORDERED: Clindamycin 600mg/50ml D5W 600 MG/50 ML VIAL IVPB STA (10:03)
[2018-08-06 10:25] LABS: BASO % 0.7 % (0.0-2.0); EOS % 0.3 % (0.0-4.0); HEMOGLOBIN 12.2 g/dL (12.0-16.0); LYMPH # 1.6 K/uL (1.0-4.3); LYMPH % 23.5 % (20.0-40.0); MEAN CELL VOLUME 91.2 fl (81.0-99.0); MEAN CORPUSCULAR HEMOGLOBIN 29.8 pg (27.0-31.0); MEAN CORPUSCULAR HGB CONC 32.7 g/dL (33.0-37.0); MEAN PLATELET VOLUME 7.4 fl (7.2-11.7); MONO # 0.4 K/uL (0.0-0.8); MONO % 6.2 % (0.0-10.0); NEUT # 4.6 K/uL (1.8-7.0); NEUT % 69.3 % (50.0-75.0); NRBC % 0.2 % (0.0-0.0); RBC 4.09 Mil/uL (3.80-5.20); RED CELL DISTRIBUTION WIDTH 12.9 % (11.5-14.5); WHITE BLOOD COUNT 6.7 K/uL (4.8-10.8)
[2018-08-06 10:34] LABS: BLOOD UREA NITROGEN 15 mg/dl (7-17); CALCIUM 8.9 mg/dL (8.4-10.2); GFR NON-AFRICAN AMERICAN > 60
[2018-08-06] MEDS ORDERED: Iohexol 300 100 ML IJ ONE (10:53)
[2018-08-06] MEDS ORDERED: Sodium Chloride 0.9% 50 ML IV ONE (10:53)
--- NOTE | 2018-08-06 11:51 | ED PDOC ---
HPI: General Adult Time Seen by Provider: 08/06/18 09:42 Chief Complaint (Nursing): ENT Problem Chief Complaint (Provider): sore throat History Per: Patient History/Exam Limitations: no limitations Severity: Moderate Additional Complaint(s): 43yo female c/o sore throat and dysphagia since last night, pain radiates to neck, denies drooling, fever, sensation of throat closing or headache. Past Medical History Reviewed: Historical Data, Nursing Documentation, Vital Signs Vital Signs: Last Vital Signs Temp 98.3 F 08/06/18 09:19 Pulse 64 08/06/18 09:19 Resp 17 08/06/18 09:19 BP 132/82 08/06/18 09:19 Pulse Ox 100 08/06/18 09:19 - Medical History PMH: No Chronic Diseases Denies: Chronic Kidney Disease - Surgical History Surgical History: No Surg Hx - Family History Family History: States: Unknown Family Hx - Social History Current smoker - smoking cessation education provided: No - Immunization History Hx Tetanus Toxoid Vaccination: No Hx Influenza Vaccination: No Hx Pneumococcal Vaccination: No - Home Medications Home Medications: Ambulatory Orders Medication Instructions Recorded Amoxicillin/Clavulanate [Augmentin 1 tab PO BID #14 tab 08/06/18 875 MG-125 MG] Ibuprofen [Motrin Tab] 600 mg PO Q6 PRN #15 tab 08/06/18 - Allergies Allergies/Adverse Reactions: Allergies Allergy/AdvReac Type Severity Reaction Status Date / Time shrimp Allergy ITCHING Verified 08/06/18 09:37 Review of Systems Constitutional: Positive for: Chills. Negative for: Fever ENT: Positive for: Throat Pain. Negative for: Ear Pain, Ear Discharge, Nose Pain, Nose Discharge Cardiovascular: Negative for: Chest Pain Respiratory: Negative for: Cough Gastrointestinal: Negative for: Abdominal Pain Genitourinary Female: Negative for: Dysuria Musculoskeletal: Positive for: Neck Pain. Negative for: Shoulder Pain Skin: Negative for: Rash, Lesions, Jaundice Neurological: Negative for: Weakness, Numbness Psych: Negative for: Suicidal ideation Physical Exam - Reviewed Nursing Documentation Reviewed: Yes Vital Signs Reviewed: Yes - Physical Exam Appears: Positive for: Well, Non-toxic Head Exam: Positive for: ATRAUMATIC Skin: Positive for: Normal Color, Warm ENT: Positive for: Pharyngeal Erythema, Tonsillar Swelling. Negative for: Normal ENT Inspection, Pharynx Is, Tonsillar Exudate Neck: Positive for: Painless ROM, Trachea Midline Respiratory: Positive for: Normal Breath Sounds Extremity: Positive for: Normal ROM Neurologic/Psych: Positive for: Alert, bagger meat II-XII, Oriented. Negative for: Motor/Sensory Deficits - Laboratory Results Result Diagrams: 08/06/18 10:15 08/06/18 10:15 - ECG O2 Sat by Pulse Oximetry: 100 Medical Decision Making Medical Decision Making: +hoarse voice with dysphagia check CT neck w contrast and labwork. initiate empiric Abx given and decadron clinical exam. Accession No. : [id number] Patient Name / ID : RENETTA FERRER / [id number] Exam Date : 08/06/2018 11:24:59 ( Approved ) Study Comment : Sex / Age : F / 43Y Creator : Destinee Helm MD Dictator : Destinee Helm MD Sports Recruiter : Furniture Assembler : Destinee Helm MD Approver2 : Report Date : 08/06/2018 12:20:12 My Comment : Date of service: 08/06/2018 PROCEDURE: CT NECK WITH CONTRAST HISTORY: throat pain, difficulty swallowing COMPARISON: None available. TECHNIQUE: CT of the neck with intravenous contrast. Coronal and sagittal reformats generated. Intravenous contrast dose: 95 cc Omnipaque 300 Radiation dose: Total exam DLP = 287.11 mGy-cm. This CT exam was performed using one or more of the following dose reduction techniques: Automated exposure control, adjustment of the mA and/or kV according to patient size, and/or use of iterative reconstruction technique. FINDINGS: NASOPHARYNX: Within normal limits. SUPRAHYOID NECK: There is mild enlargement of the palatine tonsils without definite evidence for peritonsillar abscess. No mass or abnormal enhancement oropharynx, oral cavity, parapharyngeal space and retropharyngeal space. INFRAHYOID NECK: No mass or abnormal enhancement larynx, hypopharynx, and supraglottic space. Vocal cords intact. MASS: None. GLANDS: Parotid and submandibular glands unremarkable. Normal size thyroid gland, without nodule. LYMPH NODES: Normal. No lymphadenopathy. CERVICAL SPINE: No fracture or focal lesion. VASCULAR STRUCTURES: There is normal intravascular enhancement. OTHER FINDINGS: None. IMPRESSION: Mild enlargement of the palatine tonsils without evidence for peritonsillar abscess or drainable fluid collection. No mass or abnormal enhancement. No pathologic lymphadenopathy. Rx augmentin (states clinda IV made her nauseus) and followup PMD 2-3 days. Disposition - Clinical Impression Clinical Impression: Pharyngitis - Patient ED Disposition Is Patient to be Admitted: No Counseled Patient/Family Regarding: Studies Performed, Diagnosis, Need For Followup, Rx Given - Disposition Referrals: Turner Golden MD [Staff Provider] - Disposition: Transfer of Care Disposition Time: 12:35 Condition: STABLE Additional Instructions: Drink plenty of fluids. Take medications as directed. Return to ER for any difficulty swallowing, worse or new symptoms or any concern. Prescriptions: Amoxicillin/Clavulanate [Augmentin 875 MG-125 MG] 1 tab PO BID #14 tab Ibuprofen [Motrin Tab] 600 mg PO Q6 PRN #15 tab PRN Reason: Pain, Moderate (4-7) Instructions: Sore Throat, Adult (DC) Forms: [employer] (Sammarinese), [facility] ED School/Work Excuse
--- NOTE | 2018-08-06 12:23 | CT ---
Date of service: 08/06/2018 PROCEDURE: CT NECK WITH CONTRAST HISTORY: throat pain, difficulty swallowing COMPARISON: None available. TECHNIQUE: CT of the neck with intravenous contrast. Coronal and sagittal reformats generated. Intravenous contrast dose: 95 cc Omnipaque 300 Radiation dose: Total exam DLP = 287.11 mGy-cm. This CT exam was performed using one or more of the following dose reduction techniques: Automated exposure control, adjustment of the mA and/or kV according to patient size, and/or use of iterative reconstruction technique. FINDINGS: NASOPHARYNX: Within normal limits. SUPRAHYOID NECK: There is mild enlargement of the palatine tonsils without definite evidence for peritonsillar abscess. No mass or abnormal enhancement oropharynx, oral cavity, parapharyngeal space and retropharyngeal space. INFRAHYOID NECK: No mass or abnormal enhancement larynx, hypopharynx, and supraglottic space. Vocal cords intact. MASS: None. GLANDS: Parotid and submandibular glands unremarkable. Normal size thyroid gland, without nodule. LYMPH NODES: Normal. No lymphadenopathy. CERVICAL SPINE: No fracture or focal lesion. VASCULAR STRUCTURES: There is normal intravascular enhancement. OTHER FINDINGS: None. IMPRESSION: Mild enlargement of the palatine tonsils without evidence for peritonsillar abscess or drainable fluid collection. No mass or abnormal enhancement. No pathologic lymphadenopathy.
[2018-08-06 13:28] VITALS: BP 130/78; PULSE 70; RESP 18
== END 2018-08-06 13:20 | disposition home or self-care (01) ==
LOC: H.ER 09:14
DX: J02.9 Acute pharyngitis, unspecified (principal)
CPT/HCPCS: 70491; 80048; 81025; 85025; 96365; 96375; 99283; J1100; J2405; Q9967

== ENCOUNTER 2018-10-27 04:24 | Emergency (ER) | payer BC ==
[2018-10-27 04:43] VITALS: BMI 26.4
[2018-10-27 04:46] VITALS: BP 142/89; PULSE 88; RESP 18; TEMP 98.9; O2SAT 100
[2018-10-27] MEDS ORDERED: Sodium Chloride 0.9% 1,000 ML IV STA (05:07)
--- NOTE | 2018-10-27 05:20 | ED PDOC ---
Lower Extremity Pain/Injury Time Seen by Provider: 10/27/18 04:41 Chief Complaint (Nursing): Lower Extremity Problem/Injury Chief Complaint (Provider): Lower Extremity Problem/Injury History Per: Patient History/Exam Limitations: no limitations Onset/Duration Of Symptoms: Days (x1) Additional Complaint(s): 43 years old female presents to ER for evaluation of left knee pain and sore throat onset yesterday. Patient reports history of arthritis that she was diagnosed with recently and states she has been in physiotherapy. She reports she was in physiotherapy yesterday where pain got worse. Patient states knee pain worsens when she bear weight on left leg. Patient reports she had trouble sleeping overnight due to pain. She denies, fever, shortness of breath, cough, chest pain or any injury. PMD: Jose Avila Past Medical History Reviewed: Historical Data, Nursing Documentation, Vital Signs Vital Signs: Last Vital Signs Temp 98.9 F 10/27/18 04:43 Pulse 88 10/27/18 04:43 Resp 18 10/27/18 04:43 BP 142/89 10/27/18 04:43 Pulse Ox 100 10/27/18 04:43 - Medical History PMH: Arthritis Denies: Chronic Kidney Disease - Surgical History Surgical History: No Surg Hx - Family History Family History: States: Unknown Family Hx - Social History Current smoker - smoking cessation education provided: No Alcohol: None Drugs: Denies - Immunization History Hx Tetanus Toxoid Vaccination: No Hx Influenza Vaccination: No Hx Pneumococcal Vaccination: No - Home Medications Home Medications: Ambulatory Orders Medication Instructions Recorded Amoxicillin/Clavulanate [Augmentin 1 tab PO BID #14 tab 08/06/18 875 MG-125 MG] Ibuprofen [Motrin Tab] 600 mg PO Q6 PRN #15 tab 08/06/18 Methylprednisolone [Medrol Dosepak] 4 mg PO ASDIR #1 pkg 10/27/18 - Allergies Allergies/Adverse Reactions: Allergies Allergy/AdvReac Type Severity Reaction Status Date / Time shrimp Allergy ITCHING Verified 10/27/18 04:43 Review of Systems ROS Statement: Except As Marked, All Systems Reviewed And Found Negative Constitutional: Negative for: Fever ENT: Positive for: Throat Pain Cardiovascular: Negative for: Chest Pain Respiratory: Negative for: Cough, Shortness of Breath Musculoskeletal: Positive for: Leg Pain (Left knee pain) Physical Exam - Reviewed Nursing Documentation Reviewed: Yes Vital Signs Reviewed: Yes - Physical Exam Appears: Positive for: Uncomfortable Head Exam: Positive for: ATRAUMATIC, NORMOCEPHALIC Skin: Positive for: Normal Color, Warm, Dry Eye Exam: Positive for: Normal appearance, EOMI, PERRL ENT: Positive for: Tonsillar Swelling (2+) Neck: Positive for: Normal, Painless ROM, Supple Cardiovascular/Chest: Positive for: Regular Rate, Rhythm. Negative for: Murmur Respiratory: Positive for: Normal Breath Sounds. Negative for: Respiratory Distress Gastrointestinal/Abdominal: Positive for: Normal Exam, Soft. Negative for: Tenderness Back: Positive for: Normal Inspection. Negative for: L CVA Tenderness, R CVA Tenderness Extremity: Positive for: Normal ROM (of left knee). Negative for: Pedal Edema, Deformity (of left knee), Swelling (of left knee) Neurological/Psych: Positive for: Awake, Alert, Oriented (x3) - Laboratory Results Result Diagrams: 10/27/18 05:35 10/27/18 05:35 - ECG O2 Sat by Pulse Oximetry: 100 (RA) Pulse Ox Interpretation: Normal Medical Decision Making Medical Decision Making: Time: 0507 Initial Impression: 43 y/o female with nonspecific knee pain and sore throat Initial Plan: --CMP --Lactic acid --Urine --Urine dipstick --CBC --Erythrocyte sedimentation --Toradol 30 mg IV --Blood culture --[place] --Influenza A B --Rapid Strep Group A Antigen --Urinalysis 0617 Labs reviewed and show no clinically significant abnormality with exception to mono positive. Diagnosis: mononucleosis Scribe Attestation: Documented by Mar Marquis, acting as a scribe for Ravi Hou MD. Provider Scribe Attestation: All medical record entries made by the Scribe were at my direction and persona lly dictated by me. I have reviewed the chart and agree that the record accurately reflects my personal performance of the history, physical exam, medical decision making, and the department course for this patient. I have also personally directed, reviewed, and agree with the discharge instructions and disposition. Disposition - Clinical Impression Clinical Impression: Mononucleosis - Patient ED Disposition Is Patient to be Admitted: No - Disposition Disposition: Routine/Home Disposition Time: 06:17 Condition: STABLE Prescriptions: Methylprednisolone [Medrol Dosepak] 4 mg PO ASDIR #1 pkg Instructions: Mononucleosis Forms: [employer] (Bel[place]ian), [facility] ED School/Work Excuse Print Language: MALTESE
[2018-10-27 05:52] LABS: SQUAMOUS EPITHIAL 3 /hpf (0-5); URINE BILIRUBIN NEGATIVE (NEGATIVE); URINE BLOOD SMALL (NEGATIVE); URINE CLARITY SLIGHTY-CLOUDY (Clear); URINE COLOR YELLOW (YELLOW); URINE GLUCOSE (UA) NEG (NEGATIVE); URINE LEUKOCYTE ESTERASE NEG Leu/uL (Negative); URINE PROTEIN NEGATIVE (NEGATIVE); URINE UROBILINOGEN 0.2-1.0 mg/dL (0.2-1.0)
[2018-10-27 05:52] LABS: BASO # 0.1 K/uL (0.0-0.2); BASO % 0.9 % (0.0-2.0); EOS # 0.2 K/uL (0.0-0.7); LYMPH # 1.5 K/uL (1.0-4.3); LYMPH % 24.1 % (20.0-40.0); MEAN CELL VOLUME 90.6 fl (81.0-99.0); MEAN CORPUSCULAR HGB CONC 33.1 g/dL (33.0-37.0); MEAN PLATELET VOLUME 7.7 fl (7.2-11.7); MONO # 0.7 K/uL (0.0-0.8); MONO % 11.3 % (0.0-10.0); NEUT # 3.8 K/uL (1.8-7.0); NEUT % 60.7 % (50.0-75.0); RBC 4.34 Mil/uL (3.80-5.20); RED CELL DISTRIBUTION WIDTH 12.4 % (11.5-14.5); WHITE BLOOD COUNT 6.2 K/uL (4.8-10.8)
[2018-10-27 05:58] LABS: ALB/GLOB RATIO 1.1 (1.0-2.1); ALBUMIN 4.5 g/dL (3.5-5.0); ALT/SGPT 26 U/L (9-52); AST/SGOT 32 U/L (14-36); BLOOD UREA NITROGEN 16 mg/dl (7-17); CALCIUM 9.4 mg/dL (8.4-10.2); GFR NON-AFRICAN AMERICAN > 60
[2018-10-27] MEDS ORDERED: Dexamethasone 10 MG in Sodium Chloride 0.9% 50 ML IV STA (06:03)
== END 2018-10-27 06:46 | disposition home or self-care (01) ==
LOC: H.ER 04:24
DX: B27.90 Infectious mononucleosis, unspecified without complication (principal); M25.562 Pain in left knee
CPT/HCPCS: 80053; 81003; 81025; 83605; 85025; 86308; 87040; 87070; 87430; 87804; 96374; 99284; J1100; J1885; J7030